=== PATIENT | male | born 1950 | race Caucasian/White ===

== ENCOUNTER 2019-08-23 14:15 | Outpatient (CLI) | payer MEDICARE, SELFPAY ==
[2019-08-23 14:35] LABS: Hematocrit 37.8 % (42.0-52.0); Hemoglobin 12.6 g/dL (14.0-18.0); Mean Corpuscular HGB Conc 33.3 g/dl (32-36); Mean Corpuscular Hemoglobin 32.1 pg (26-34); Mean Corpuscular Volume 96.2 fl (80-100); Mean Platelet Volume 10.2 fl (7.4-10.4); Platelet Count Result 232 k/mm3 (150-375); Red Blood Count 3.93 M/mm3 (4.6-6.20); Red Cell Distribution Width 13.1 % (11.5-14.5); White Blood Count 5.6 K/mm3 (4.5-10.0)
[2019-08-23 14:51] LABS: Alanine Aminotransferase 44 U/L (4-50); Alkaline Phosphatase 70 U/L (38-126); Aspartate Amino Transferase 70 U/L (17-59); Bilirubin,Total 0.5 mg/dL (0.2-1.3); Blood Urea Nitrogen 13 mg/dL (9-20); Calcium 9.6 mg/dL (8.4-10.2); Carbon Dioxide 28 mmol/L (22-30); Chloride 95 mmol/L (98-107); Cholesterol 226 mg/dL (0-200); Estimated Glomerular Filt Rate > 60; Glucose 93 mg/dL (75-110); HDL Direct 77 mg/dL; Potassium 4.7 mmol/L (3.4-5.0); Sodium 133 mmol/L (137-145); Triglycerides 87 mg/dL (<150)
[2019-08-23 15:02] LABS: LDL Cholesterol Direct 128 mg/dL
[2019-08-28 23:57] LABS: Vitamin D 1,25 (OH)2 Total 44 pg/mL (18-72); Vitamin D2 1,25 (OH)2 <8 pg/mL; Vitamin D3 1,25 (OH)2 44 pg/mL
== END 2019-08-23 14:16 | disposition home or self-care (01) ==
LOC: ANHLAB 14:21
PROVIDERS: PCP Family Medicine; Visit Provider Nurse Practitioner Family
DX: I10 Essential (primary) hypertension (principal)
CPT/HCPCS: 36415; 80053; 80061; 82652; 85027

== ENCOUNTER 2019-09-06 11:34 | Outpatient (CLI) | payer MEDICARE, SELFPAY | END 2019-09-06 11:35 | disposition home or self-care (01) | PROVIDERS: PCP Family Medicine; Visit Provider Nurse Practitioner Family | DX: E03.9 Hypothyroidism, unspecified (principal) | CPT/HCPCS: 36415; 84443 ==

== ENCOUNTER 2019-11-26 00:19 | Outpatient (CLI) | payer MEDICARE, SELFPAY ==
[2019-11-26 17:01] LABS: SARS-CoV-2 RNA PCR Negative
== END 2019-11-26 00:20 | disposition home or self-care (01) ==
LOC: ANHCOVIDDT 00:20
PROVIDERS: PCP Family Medicine; Visit Provider Internal Medicine Gastroenterology
DX: Z01.818 Encounter for other preprocedural examination (principal); Z11.59 Encounter for screening for other viral diseases
CPT/HCPCS: 87635; C9803; U0003

== ENCOUNTER 2019-11-28 00:25 | Day surgery (SDC) | payer MEDICARE, SELFPAY ==
[2019-11-22 13:25] VITALS: BMI 25.6
[2019-11-28 06:37] VITALS: BP 172/76; PULSE 70; RESP 18; TEMP 36.7; O2SAT 100; BMI 25.8
[2019-11-28] MEDS: LACTATED RINGERS 1,000 ML 150 ML IV CONT (06:54)
--- NOTE | 2019-11-28 07:04 | WPDANESEPPF ---
Anes - Initial Pre Proc Eval Procedure: Operation Date: 11/28/19 07:30 Proposed Procedures p Screening Colonoscopy - Phil Eugene MD Date/Time: 11/28/19 07:04 Surgeon: Phil Eugene MD Pre Op Diagnosis: Hx Colon Polyps Patient Data Age: 69 Gender: M Height: 5 ft 10 in Weight: 81.6 kg Last Vital Signs Temp 36.7 C 11/28/19 06:37 Pulse 70 11/28/19 06:37 Resp 18 11/28/19 06:37 BP 172/76 H 11/28/19 06:37 Pulse Ox 100 11/28/19 06:37 Allergies Allergy/AdvReac Type Severity Reaction Status Date / Time No Known Allergies Allergy Unverified 11/28/19 06:34 Home Medications Medication Instructions Recorded Confirmed Type ascorbate calcium (vitamin C) 500 500 mg PO DAILY #90 tablet 08/23/19 11/28/19 Rx mg tablet cholecalciferol (vitamin D3) 50 4,000 unit PO DAILY tablet 08/23/19 11/28/19 History mcg (2,000 unit) chewable tablet cyanocobalamin (vitamin B-12) 1,000 mcg PO DAILY #90 tablet 08/23/19 11/28/19 Rx 1,000 mcg tablet multivitamin 1 cap PO DAILY #90 cap 08/23/19 11/28/19 Rx sildenafil 100 mg tablet See Rx Instructions PO .COMPLEX 08/23/19 11/28/19 Rx PRN #30 tablet methylprednisolone 4 mg tablets in See Rx Instructions PO PER PKG DIR 10/08/19 11/28/19 Rx a dose pack #21 each amlodipine 5 mg tablet 5 mg PO DAILY #90 tablet 11/07/19 11/28/19 Rx levothyroxine 25 mcg tablet 25 mcg PO DAILY #90 tablet 11/07/19 11/28/19 Rx lisinopril 20 mg tablet 20 mg PO DAILY #90 tablet 11/07/19 11/28/19 Rx Patient hx anesthesia problems: none Family hx anesthesia problems: none PMFSH Past Medical History Medical History Abnormal colonoscopy (~08/2012) polyp - Dr Eugene Erectile dysfunction Essential (primary) hypertension Vitamin D deficiency Surgical History Surgical History History of arthroscopy of knee History of cataract extraction (~11/2016) History of hip replacement History of lumbar surgery (~2016) Family History Family History Father Acute myocardial infarction Social History Social History Smoking status: Never smoker Alcohol intake: current Anes - Eval Final PreProcedure Day of Procedure 11/28/19 07:04 Patient weight: normal Heart: regular rate and rhythm Lungs: clear to auscultation Airway: Mallampati scale class II Neurological: alert and oriented Last oral intake: >/= 8 hours ASA classification: II Emergent: no Anesthetic plan: proceed Anesthesia type and monitoring: general GIVS and standard monitoring Informed Consent: The patient's anesthetic plan and its attendant risks and benefits were discussed with the patient/family/POA. Questions were solicited and answers provided to the satisfaction of the patient/family/POA.
--- NOTE | 2019-11-28 07:48 | P.CONGI_ITS ---
Assessment and Plan Assessment and plan (1) History of colon polyps: Code(s): Z86.010 - Personal history of colonic polyps Status: Acute Assessment and Plan: Patient has a distant history of colon polyps. Patient presents today for follow-up colonoscopy. Plan is to continue fiber in his diet. Further recommendations will be given after endoscopy. GI Consult Note Consult date/time: 11/28/19 07:48 HPI: Richie Jimenez is a 69 year old male seen in evaluation at the request of DR Jessi Davis.Patient presents for surveillance colonoscopy. Patient has a history of colon polyps identified by endoscopy 7 years ago. Patient's current weight appetite bowel movements are normal. He denies abdominal pain. He denies any blood in his stools. His bowel habits are regular. Family history is noncontributory. Review of Systems Review of Systems: All systems reviewed & are unremarkable except as noted in HPI and below PMFSH Past Medical History Medical History Abnormal colonoscopy (~08/2012) polyp - Dr Eugene Erectile dysfunction Essential (primary) hypertension Vitamin D deficiency Surgical History Surgical History History of arthroscopy of knee History of cataract extraction (~11/2016) History of hip replacement History of lumbar surgery (~2016) Family History Family History Father Acute myocardial infarction Social History Social History Smoking status: Never smoker Alcohol intake: current Meds Home Medications and Allergies Home Medications Medication Instructions Recorded Confirmed Type ascorbate calcium (vitamin C) 500 500 mg PO DAILY #90 tablet 08/23/19 11/28/19 Rx mg tablet cholecalciferol (vitamin D3) 50 4,000 unit PO DAILY tablet 08/23/19 11/28/19 History mcg (2,000 unit) chewable tablet cyanocobalamin (vitamin B-12) 1,000 mcg PO DAILY #90 tablet 08/23/19 11/28/19 Rx 1,000 mcg tablet multivitamin 1 cap PO DAILY #90 cap 08/23/19 11/28/19 Rx sildenafil 100 mg tablet See Rx Instructions PO .COMPLEX 08/23/19 11/28/19 Rx PRN #30 tablet methylprednisolone 4 mg tablets in See Rx Instructions PO PER PKG DIR 10/08/19 11/28/19 Rx a dose pack #21 each amlodipine 5 mg tablet 5 mg PO DAILY #90 tablet 11/07/19 11/28/19 Rx levothyroxine 25 mcg tablet 25 mcg PO DAILY #90 tablet 11/07/19 11/28/19 Rx lisinopril 20 mg tablet 20 mg PO DAILY #90 tablet 11/07/19 11/28/19 Rx Allergies Allergy/AdvReac Type Severity Reaction Status Date / Time No Known Allergies Allergy Unverified 11/28/19 06:34 Vital Signs Vital Signs - 24 hr 11/28/19 06:37 Temperature 36.7 C Pulse Rate 70 Respiratory Rate 18 Blood Pressure 172/76 H Pulse Oximetry 100 Exam Narrative: Exam Narrative: Physical exam reveals patient to be alert. Vital signs stable. HEENT exam unremarkable. Lungs are clear to auscultation and percussion. Heart is without murmur or extra sounds. Abdominal exam bowel sounds are present soft nontender with no organomegaly. 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
[2019-11-28 08:15] VITALS: BP 141/86; PULSE 65; RESP 17; O2SAT 100
[2019-11-28 08:25] VITALS: BP 140/83; PULSE 69; RESP 17; O2SAT 100
[2019-11-28 08:35] VITALS: BP 146/88; PULSE 68; RESP 17; O2SAT 100
== END 2019-11-28 08:50 | disposition home or self-care (01) ==
PROVIDERS: PCP Family Medicine; Visit Provider Internal Medicine Gastroenterology
PROC: 0DJD8ZZ Inspection of Lower Intestinal Tract, Via Natural or Artificial Opening Endoscopic (ICD-10-PCS; CPT 45378; principal; 2019-11-28 07:30)
DX: Z12.11 Encounter for screening for malignant neoplasm of colon (principal); D12.2 Benign neoplasm of ascending colon; D12.5 Benign neoplasm of sigmoid colon; K64.8 Other hemorrhoids; I10 Essential (primary) hypertension; E55.9 Vitamin D deficiency, unspecified; N52.9 Male erectile dysfunction, unspecified
CPT/HCPCS: 45385; 87635; 88305; C9803; J2704; J7120; U0003

== ENCOUNTER 2020-06-18 09:38 | Outpatient (CLI) | payer MEDICARE, SELFPAY ==
--- NOTE | 2020-06-18 12:00 | NEURO_ITS ---
IMPRESSION: # Complains of pain and numbness of hands, more so at night. # Severe Carpal Tunnel Syndrome, right more than left. # Mild ulnar neuropathy across the elbow, left more than right. # Abnormal needle/EMG exa. # Clinical correlation recommended. Nerve Conduction Studies Anti Sensory Summary Table Stim Site NR Peak (ms) P-T Amp (?V) Site1 Site2 Delta-P (ms) Dist (cm) Donovan (m/s) Left Median Anti Sensory (2-3nd Digit) Wrist 4.0 25.5 Wrist 2-3nd Digit 4.0 14.0 35 Wrist 4.4 26.9 Wrist 2-3nd Digit 4.0 14.0 35 Right Median Anti Sensory (2-3nd Digit) NO RESPONSE Wrist NR Wrist 2-3nd Digit 14.0 Wrist NR Wrist 2-3nd Digit 14.0 Left Radial Anti Sensory (Base 1st Digit) Wrist 3.1 4.5 Wrist Base 1st Digit 3.1 0.0 Right Radial Anti Sensory (Base 1st Digit) Wrist 3.0 5.4 Wrist Base 1st Digit 3.0 0.0 Left Ulnar Anti Sensory (5th Digit) Wrist 3.0 9.6 Wrist 5th Digit 3.0 14.0 47 Right Ulnar Anti Sensory (5th Digit) Wrist 3.1 39.8 Wrist 5th Digit 3.1 14.0 45 Motor Summary Table Stim Site NR Onset (ms) O-P Amp (mV) Site1 Site2 Delta-0 (ms) Dist (cm) Donovan (m/s) Left Median Motor (Abd Poll Brev) Wrist 5.3 0.2 Elbow Wrist 5.8 30.0 52 Elbow 11.1 0.9 Right Median Motor (Abd Poll Brev) Wrist 5.5 1.1 Elbow Wrist 5.8 29.0 50 Elbow 11.3 2.0 Left Ulnar Motor (Abd Dig Minimi) Wrist 3.1 6.3 A Elbow Wrist 6.7 31.0 46 A Elbow 9.8 5.2 B Elbow Wrist 4.4 22.0 50 B Elbow 7.5 5.4 Right Ulnar Motor (Abd Dig Minimi) Wrist 3.2 6.6 A Elbow Wrist 5.9 29.0 49 A Elbow 9.1 5.4 B Elbow Wrist 4.7 22.0 47 B Elbow 7.9 5.0 F Wave Studies NR F-Lat (ms) L-R F-Lat (ms) Left Median (Mrkrs) (Abd Poll Brev) 30.05 0.94 Right Median (Mrkrs) (Abd Poll Brev) 30.99 0.94 Left Ulnar (Mrkrs) (Abd Dig Min) 30.54 1.09 Right Ulnar (Mrkrs) (Abd Dig Min) 29.46 1.09 EMG Side Muscle Nerve Root Ins Act Fibs Amp Dur Recrt Comment Right 1stDorInt Ulnar C8-T1 Nml Nml Nml Nml Reduced Right Ext Indicis Radial (Post Int) C7-8 Nml Nml Nml Nml Nml Right Ext Digitorum Radial (Post Int) C7-8 Nml Nml Nml Nml Nml Right BrachioRad Radial C5-6 Nml Nml Nml Nml Nml Right PronatorTeres Median C6-7 Nml Nml Nml Nml Nml Right Abd Poll Brev Median C8-T1 Nml Nml Nml Nml Reduced Left 1stDorInt Ulnar C8-T1 Nml Nml Nml Nml Reduced Left Ext Indicis Radial (Post Int) C7-8 Nml Nml Nml Nml Nml Left Ext Digitorum Radial (Post Int) C7-8 Nml Nml Nml Nml Nml Left BrachioRad Radial C5-6 Nml Nml Nml Nml Nml Left PronatorTeres Median C6-7 Nml Nml Nml Nml Nml Left Abd Poll Brev Median C8-T1 Nml Nml Decr >12ms Reduced Right ABD Dig Min Ulnar C8-T1 Nml Nml Nml Nml Reduced Left ABD Dig Min Ulnar C8-T1 Nml Nml Nml Nml Reduced MTDD
== END 2020-06-18 09:39 | disposition home or self-care (01) ==
LOC: ANHNEURO 09:39
PROVIDERS: PCP Family Medicine; Visit Provider Nurse Practitioner Family
DX: R20.2 Paresthesia of skin (principal); G56.03 Carpal tunnel syndrome, bilateral upper limbs; G56.23 Lesion of ulnar nerve, bilateral upper limbs
CPT/HCPCS: 95886; 95911

== ENCOUNTER 2020-08-15 12:58 | Outpatient (CLI) | payer MEDICARE, SELFPAY | END 2020-08-15 12:59 | disposition home or self-care (01) | LOC: ANHCOVIDVC 12:58 | PROVIDERS: PCP Family Medicine | DX: Z23 Encounter for immunization (principal) | CPT/HCPCS: 0001A; 91300 ==

== ENCOUNTER 2020-09-05 13:01 | Outpatient (CLI) | payer MEDICARE, SELFPAY | END 2020-09-05 13:02 | disposition home or self-care (01) | LOC: ANHCOVIDVC 13:02 | PROVIDERS: PCP Family Medicine | DX: Z23 Encounter for immunization (principal) | CPT/HCPCS: 0002A; 91300 ==

== ENCOUNTER 2021-10-22 09:31 | Outpatient (CLI) | payer MEDICARE, SELFPAY ==
--- NOTE | 2021-10-22 09:58 | ECHO_ITS ---
Patient Info Name: Rcihie Jimenez Age: 71 years : 1950 Gender: Male Ht: 70 in Wt: 180 lbs BSA: 2.02 m2 HR: 67 bpm BP: 159 / 89 mmHg Technical Quality: Good Exam Date: 10/22/2021 10:15 AM Exam Location: [facility] Patient Status: Outpatient Admit Date: 10/22/2021 Staff Ordering Physician: oJhanna Ewing NP Rn Orthopaedic: Deacon Bridges RDCS, RT Attending Provider: Johanna Ewing NP Referring Physician: Gildardo GO; Exam Type: CA echo doppler color flow Study Info Indications R01.1 - Cardiac murmur, unspecified Complete two-dimensional, color flow and Doppler transthoracic echocardiogram is performed. Strain analysis performed. Summary 1. Complete two-dimensional, color flow and Doppler transthoracic echocardiogram is performed. 2. Left ventricular chamber dimension is normal. 3. Left ventricular systolic function is normal, estimated at 60-65%. 4. There is mildly increased left ventricular wall thickness. 5. The left ventricular diastolic function is grade II diastolic dysfunction. 6. E/e' 8 is minimally elevated. 7. Global longitudinal strain is normal at -18.7%. 8. Left atrial chamber dimension is mildly enlarged. 9. There is moderate aortic valve sclerosis. 10. There is mild aortic valve stenosis with a peak velocity of 242 cm/s, mean gradient of 12 mmHg, and aortic valve area of 1.7 cm2. 11. The mitral valve has mildly calcified annulus. 12. There is mild mitral valve regurgitation. 13. There is mild tricuspid valve regurgitation. 14. Mild pulmonary hypertension, estimated pulmonary arterial systolic pressure is 40 mmHg. 15. Dilated inferior vena cava with >50% collapse upon inspiration consistent with elevated right atrial pressure, 10 mmHg. Left Ventricle E/e' 8 is minimally elevated. Global longitudinal strain is normal at -18.7%. Left ventricular chamber dimension is normal. Left ventricular systolic function is normal, estimated at 60-65%. There is mildly increased left ventricular wall thickness. The left ventricular diastolic function is grade II diastolic dysfunction. Right Ventricle Right ventricular chamber dimension is normal. Right ventricular systolic function is normal. Left Atria Left atrial chamber dimension is mildly enlarged. Right Atria Right atrial chamber dimension is normal. Aortic Valve The aortic valve is trileaflet. There is moderate aortic valve sclerosis. There is mild aortic valve stenosis with a peak velocity of 242 cm/s, mean gradient of 12 mmHg, and aortic valve area of 1.7 cm2. There is no aortic valve regurgitation. Pulmonic Valve There is no pulmonic regurgitation. Mitral Valve The mitral valve has mildly calcified annulus. There is no mitral valve stenosis. There is mild mitral valve regurgitation. Tricuspid Valve There is mild tricuspid valve regurgitation. Mild pulmonary hypertension, estimated pulmonary arterial systolic pressure is 40 mmHg. Pericardium/Pleural There is no pericardial effusion. Inferior Vena Cava Dilated inferior vena cava with >50% collapse upon inspiration consistent with elevated right atrial pressure, 10 mmHg. Aorta The aortic root size at the sinus of Valsalva is normal. Left Ventricular Outflow Tract Name Value Normal LVOT 2D
== END 2021-10-22 09:32 | disposition home or self-care (01) ==
PROVIDERS: PCP Family Medicine; Visit Provider Nurse Practitioner Family
DX: R01.1 Cardiac murmur, unspecified (principal); I08.3 Combined rheumatic disorders of mitral, aortic and tricuspid valves
CPT/HCPCS: 93306

== ENCOUNTER 2023-01-05 14:52 | Inpatient (IN) | payer MEDICARE, SELFPAY ==
[2023-01-05] VITALS (30 sets, daily range): BP systolic 115–179; BP diastolic 70–102; PULSE 16–83; RESP 15–18; TEMP 36.4–36.7; O2SAT 97–100
--- NOTE | ~2023-01-05 | MR_ITS ---
MRI of the lumbar spine Clinical History: Cauda equina syndrome Technique: Axial T2-weighted and gradient images, and sagittal T1-weighted, T2-weighted, and STIR jocelyn ges were acquired. Following intravenous administration of 17 cc MultiHance gadolinium, T1-weighted f at-sat imaging was performed in the axial and sagittal planes. COMPARISON: 12/31/2016 Findings: No acute fracture seen. 6 mm anterolisthesis of L3 over L4 present. No suspicious bone lary ow signal abnormality seen. At L1-L2, there is minimal disc bulge with moderate to severe facet arthropathy. No central canal meredith nosis. There is mild bilateral neural foraminal narrowing. At L2-L3, there is moderate degenerative disc narrowing. There is diffuse disc bulge and severe facet arthropathy, which contribute to severe spinal canal stenosis/thecal sac compression. There is sever e bilateral neural foraminal narrowing. At L3-L4, there is advanced degenerative disc narrowing. Disc bulge and severe facet arthropathy resu lt in severe spinal canal stenosis/thecal sac compression. There is severe bilateral neural foraminal narrowing. At L4-L5, there is moderate to severe degenerative disc narrowing. There is diffuse disc bulge, worst in the right paracentral region, with severe facet arthropathy. There is right lateral recess stenos is and mild to moderate central canal stenosis/thecal sac compression. There is severe right neural f oraminal narrowing. There is moderate to severe left neural foraminal narrowing. At L5-S1, there is severe facet arthropathy with minimal disc bulge. No central canal stenosis. There is mild to moderate right neural foraminal narrowing. Left neural foramen preserved. Paravertebral soft tissues are unremarkable. No abnormal postcontrast enhancement identified. Impression: Severe multilevel degenerative spondylosis in the lumbar spine, as detailed above. 6 mm anterolisthesis of L3 over L4. Reviewed, dictated and finalized at location . Impression: Severe multilevel degenerative spondylosis in the lumbar spine, as detailed abo ve. 6 mm anterolisthesis of L3 over L4.
--- NOTE | ~2023-01-05 | XR_ITS ---
XR pelvis 1-2V 01/05/2023 18:58 Indication: Right hip pain Procedure: AP pelvis Comparison: 01/01/2014 Findings: Pelvic rings are intact. There is a left total hip arthroplasty. There is moderate osteoart hritis of the right hip. Pelvic rings are intact. Sacral foramen are symmetric. No acute fracture or traumatic malalignment. Impression: 1: No acute fracture. Reviewed, dictated and finalized at location A. Impression: 1: No acute fracture.
--- NOTE | ~2023-01-05 | CT_ITS ---
EXAMINATION: CT thoracic lumbar wo con DATE: 01/05/2023 18:53 INDICATION: Right leg weakness TECHNIQUE: Computed tomography (CT) of the thoracic and lumbar spine was performed without intravenou s contrast. The dose-length product was 1286.10 mGy-cm. Automated exposure control and iterative dong nstruction technique were employed. COMPARISON: MRI dated 12/31/2016 FINDINGS: Mild wedge compression deformities of T6-T12 which appear chronic. There is degenerative di sc disease at these levels. There are prominent ventral osteophytes at these levels. No acute fractur e or traumatic malalignment. Visualized lung parenchyma is unremarkable. No significant paraspinal so ft tissue abnormality. There is grade 1 spondylolisthesis at L3-4 secondary to facet hypertrophy with severe central canal s tenosis. There is facet hypertrophy at L2-3 through L5-S1. No acute fracture or traumatic malalignmen t. There is mild dextrocurvature of the lumbar spine. There are prominent marginal osteophytes. No si gnificant paraspinal soft tissue abnormality. IMPRESSION: 1. No acute abnormality of the thoracic or lumbar spine. 2: Grade 1 degenerative spondylolisthesis at L3-4 secondary to facet hypertrophy with severe central canal stenosis. 3: Moderate-severe lower thoracic and lumbar spondylosis. Reviewed, dictated and finalized at location A. IMPRESSION: 1. No acute abnormality of the thoracic or lumbar spine. 2: Grade 1 degenerative spondylolisthesis at L3-4 secondary to facet hypertroph y with severe central canal stenosis. 3: Moderate-severe lower thoracic and lumbar spondylosis.
--- NOTE | ~2023-01-05 | XR_ITS ---
EXAMINATION: XR fluoroscopy no charge DATE: 01/06/2023 16:19 INDICATION: Laminectomy TECHNIQUE: Single lateral fluoroscopic image of the lumbar spine were obtained during procedure perfo rmed by Dr. Palomares. Radiologist was not present for the imaging or procedure. The amount of fluorosc opy time used during this procedure was 0.1 minutes. COMPARISON: Lumbar spine MR dated 01/06/2023 FINDINGS: Again seen is moderate lumbar spondylosis including grade 1 anterolisthesis of L3 on L4. Soft tissue retractors and a metallic probe projects over the region of the spinous process of L3 which is not cl early visualized which could be due to either resection or overpenetration resulting from lucent gas at the operative bed. IMPRESSION: 1. Fluoroscopy utilized during reported lumbar laminectomy. See procedure note for further detail. Reviewed, dictated and finalized at location A.
--- NOTE | 2023-01-05 18:25 | PC.NURSE ---
Spoke with Dr. Mccormick regarding pts bladder scan and muskuloskeletal issues and MD going to speak with pt before straight cath or gonzalez placement. Will await orders.
--- NOTE | 2023-01-05 19:12 | ED.LOWEXIN ---
HPI - Extremity Injury (Lower) General Chief Complaint: Urogenital-Male Stated Complaint: difficulty urinating/hip pain Time Seen by Provider: 01/05/23 17:59 History of Present Illness HPI Narrative: This is a 72-year-old male with past history of hyperlipidemia, heart murmur, who presents the emergency department complaining of right hip pain, right lower extremity weakness and difficulty urinating. The patient states 2 days ago, he started developing intermittent sharp and dull right hip pain. At baseline, his pain is rated 2/10, but with intermittent movements, it increases to 9/10. He also notes during this time difficulty urinating. Today, he noticed right leg weakness. He denies fevers, chills, trauma, falls or other recent change in his health or medications Related Data Home Medications Medication Instructions Recorded Confirmed cholecalciferol (vitamin D3) 50 4,000 unit PO DAILY 08/23/19 01/05/23 mcg (2,000 unit) chewable tablet ascorbate calcium (vitamin C) 500 500 mg PO EVERY OTHER DAY 01/05/23 01/05/23 mg tablet lisinopril 40 mg tablet 40 mg PO DAILY 01/05/23 01/05/23 [id number]-ssi-dwtxdeko acid 1,000 1 ea PO EVERY OTHER DAY 01/05/23 01/05/23 mg-herbal 350 mg oral efferves powder pack (Airborne (ascorbic acid)) Allergies Allergy/AdvReac Type Severity Reaction Status Date / Time No Known Allergies Allergy Verified 09/25/21 10:03 Review of Systems Review of Systems: CONSTITUTIONAL: Denies fever, chills, or sweats. CARDIOVASCULAR: Denies chest pain, palpitations, or edema. RESPIRATORY: Denies cough or dyspnea. GASTROINTESTINAL: Denies abdominal pain, nausea, vomiting, or diarrhea. GENITOURINARY: Denies dysuria or hematuria. SKIN: Denies rash or itching. MUSCULOSKELETAL: Right hip pain denies back pain, joint pain, or myalgia. NEUROLOGIC: Denies headache, numbness, dizziness, or weakness. PSYCHIATRIC: Denies anxiety or depression. [facility] Past Medical History Medical History Abnormal colonoscopy (~08/2012) polyp - Dr Eugene Aortic valve stenosis, moderate Cardiac murmur Carpal tunnel syndrome Chronic anemia Dyslipidemia Erectile dysfunction Essential (primary) hypertension Hypothyroid Vitamin D deficiency Surgical History Surgical History H/O elbow surgery History of arthroscopy of knee History of carpal tunnel surgery of left wrist History of cataract extraction (~11/2016) History of hip replacement History of lumbar surgery (~2016) Family History Family History (Updated 01/05/23 @ 23:27 by Ashely Fernandez RN) Father Acute myocardial infarction Mother Rheumatoid arteritis Pneumonia Social History Social History Social History: . Retired Smoking status: Never smoker Alcohol intake: current Drinks per week: 28 Substance use: never Substance use type: does not use Lack of Transportation: No Lack of Food: Never True Current Housing: I Have Housing Concerned About Future Housing: No Difficulty Paying Gas/Electric Bills: No Difficulty Paying for Meds: No Currently Unemployed: No Education: Associate Degree Difficulty w/ Childcare or Family Care: No Living arrangements: with family Occupation/Education: retired Gender identity (if verbalized by the patient): Male Sexual Orientation (if Verbalized by the Patient): Straight or Heterosexual Spiritual care concerns: No Agree to blood products: Yes Exam Narrative: GENERAL: Well-developed, well-nourished, and in no acute distress. HEAD: Normocephalic, atraumatic. EYES: PERRLA and EOMI. NECK: Supple. No midline spine tenderness to palpation, no step-off or crepitus CHEST: Clear to auscultation. No respiratory distress. No wheezes rales or rhonchi HEART: Regular rate and rhythm. No murmur heard. Normal p
[2023-01-05] MEDS: oxyCODONE/ACETAMINOPHEN (*CRX) 5-325 MG TABLET 1 TABLET PO (19:40)
--- NOTE | 2023-01-05 21:08 | PM.IMHP ---
H&P: HPI History of Present Illness Date/Time: 01/05/23 21:08 Chief Complaint: Gait disturbance Narrative: This is a 72-year-old male with past medical history significant for hypertension, hypothyroidism, carpal tunnel syndrome, patient presents to the emergency room due to lower back pain right hip pain unable to bear weight on right leg, unable to do hip flexion of the right leg however denies numbness tingling prickling sensation denies saddle anaesthesia however has had urinary retention. Preliminary workup in the emergency room was significant for CT of lumbar spine with severe spinal canal stenosis. Patient has been admitted for further evaluation management and treatment. EXAMINATION: CT thoracic lumbar wo con DATE: 01/05/2023 18:53 INDICATION: Right leg weakness TECHNIQUE: Computed tomography (CT) of the thoracic and lumbar spine was performed without intravenous contrast. The dose-length product was 1286.10 mGy-cm. Automated exposure control and iterative reconstruction technique were employed. COMPARISON: MRI dated 12/31/2016 FINDINGS: Mild wedge compression deformities of T6-T12 which appear chronic. There is degenerative disc disease at these levels. There are prominent ventral osteophytes at these levels. No acute fracture or traumatic malalignment. Visualized lung parenchyma is unremarkable. No significant paraspinal soft tissue abnormality. There is grade 1 spondylolisthesis at L3-4 secondary to facet hypertrophy with severe central canal stenosis. There is facet hypertrophy at L2-3 through L5-S1. No acute fracture or traumatic malalignment. There is mild dextrocurvature of the lumbar spine. There are prominent marginal osteophytes. No significant paraspinal soft tissue abnormality. IMPRESSION: 1. No acute abnormality of the thoracic or lumbar spine. 2: Grade 1 degenerative spondylolisthesis at L3-4 secondary to facet hypertrophy with severe central canal stenosis. 3:? Moderate-severe lower thoracic and lumbar spondylosis. Review of Systems Review of Systems: Lower back pain, right hip pain, right lower extremity weakness Constitutional: Constitutional: Denies fatigue, Denies fever(s), Denies frequent falls, Denies night sweats, Denies poor appetite and Denies weakness Eyes: Eyes: Denies change in vision ENT: Denies dysphagia and Denies dizziness Cardiovascular: Cardiovascular: Denies chest pain at rest, Denies leg edema, Denies radiating jaw, neck or arm pain and Denies palpitations Respiratory: Respiratory: Denies chest congestion, Denies cough and Denies excessive phlegm production Gastrointestinal: Gastrointestinal: Denies abdominal pain, Denies dyspepsia, Denies heartburn, Denies fecal incontinence, Denies diarrhea, Denies nausea and Denies vomiting Genitourinary: Genitourinary: Reports nocturia and Reports urinary hesitancy Comments: Urinary retention Musculoskeletal: Musculoskeletal: Reports back pain, Reports arthralgias (R hip), Denies muscle cramps, Reports muscle weakness, Denies numbness, Reports radiating pain into limb, Denies stiffness and Denies tingling Integumentary/Breasts: Skin/Breast: Denies rash Neurologic: Denies frequent falls, Denies focal weakness, Denies numbness, Denies seizure-like activity, Denies Sensory deficit (Neuro), Denies tingling, Denies paresthesias and Denies weakness Psychiatric: Psychiatric: Reports no additional psychiatric complaints and Reports as per HPI Endocrine: Endocrine: Denies cold intolerance, Denies fatigue, Denies flushing, Denies heat intolerance, Denies polyphagia, Denies polydipsia, Denies polyuria and Denies palpitations Hematologic/Lymphatic: Hematologic/Lymphatic: Reports no additional hematologic/lymphatic complaints and Reports as per HPI Allergic/Immunologic: Allergic/Immunologic: Reports no additional allergic/immunologic complaints and Reports as per HPI PMFSH Past Medical History Medical History (Reviewed 01/05/23 @ 19:12 by
[2023-01-05 21:28] LABS: Basophils Absolute Auto 0.1 K/mm3 (0.0-0.1); Basophils Percent Auto 1.6 % (0.2-1.2); Eosinophils Absolute Auto 0.3 K/mm3 (0-0.3); Eosinophils Percent Auto 3.9 % (0-4.4); Hematocrit 35.6 % (42.0-52.0); Hemoglobin 12.3 g/dL (14.0-18.0); Immature Granulocyte Absolute 0.01 K/mm3 (0.00-0.031); Immature Granulocyte Percent A 0.1 % (0-0.5); Lymphocytes Absolute Auto 1.94 K/mm3 (0.9-3.2); Mean Corpuscular HGB Conc 34.6 g/dl (32-36); Mean Corpuscular Hemoglobin 32.3 pg (26-34); Mean Corpuscular Volume 93.4 fl (80-100); Mean Platelet Volume 9.4 fl (7.4-10.4); Monocytes Absolute Auto 0.9 K/mm3 (0.1-0.6); Monocytes Percent Auto 12.3 % (2.6-8.5); Neutrophils Absolute Auto 4.2 K/mm3 (1.3-6.7); Neutrophils Percent Auto 56.1 % (45.5-73.1); Platelet Count Result 293 k/mm3 (150-375); Red Blood Count 3.81 M/mm3 (4.6-6.20); White Blood Count 7.5 K/mm3 (4.5-10.0)
[2023-01-05 21:39] LABS: INR 1.1; Prothrombin Time 14.3 Seconds (11.1-14.7)
[2023-01-05 21:40] LABS: Alanine Aminotransferase 17 U/L (6-50); Albumin Level 4.9 g/dL (3.5-5.1); Alkaline Phosphatase 64 U/L (38-126); Anion Gap 10 mmol/L (8-16); Aspartate Amino Transferase 31 U/L (17-59); Bilirubin,Total 0.5 mg/dL (0.2-1.3); Blood Urea Nitrogen 23 mg/dL (9-20); Calcium 9.3 mg/dL (8.4-10.2); Carbon Dioxide 26 mmol/L (22-30); Chloride 93 mmol/L (98-107); Estimated CRCL calculation 56 ml/min; Estimated Glomerular Filt Rate > 60; Glucose 97 mg/dL (65-110); Partial Thromboplastin Time 36.3 SECONDS (22.3-36.8); Potassium 4.2 mmol/L (3.4-5.0); Sodium 129 mmol/L (137-145)
--- NOTE | 2023-01-05 23:24 | ADMGEN ---
This patient, Richie Jimenez, was admitted to Medical Room 259-01. Patient/family oriented to hospital policies and general routines including ID bracelet, bed and alarms, visiting hours, pain management, procedures, bathroom and other care routines, personal items, smoking policy, room service/diet, and visiting hours. Information on how to activate the Rapid Response Team has been discussed. Patient/Family are encouraged to report perceived risks to care and to ask questions if they do not understand what they are told or what they should do.
[2023-01-06] VITALS (13 sets, daily range): BP systolic 125–146; BP diastolic 54–72; PULSE 72–91; RESP 16–20; TEMP 36.2–36.9; O2SAT 93–100; BMI 26.4
[2023-01-06 05:42] LABS: Basophils Absolute Auto 0.1 K/mm3 (0.0-0.1); Basophils Percent Auto 1.2 % (0.2-1.2); Eosinophils Absolute Auto 0.4 K/mm3 (0-0.3); Eosinophils Percent Auto 3.2 % (0-4.4); Hemoglobin 12.6 g/dL (14.0-18.0); Immature Granulocyte Absolute 0.03 K/mm3 (0.00-0.031); Immature Granulocyte Percent A 0.3 % (0-0.5); Lymphocytes Absolute Auto 1.47 K/mm3 (0.9-3.2); Lymphocytes Percent Auto 13.3 % (18.3-44.2); Mean Corpuscular HGB Conc 34.1 g/dl (32-36); Mean Corpuscular Hemoglobin 32.1 pg (26-34); Mean Corpuscular Volume 94.1 fl (80-100); Mean Platelet Volume 9.7 fl (7.4-10.4); Monocytes Absolute Auto 1.4 K/mm3 (0.1-0.6); Monocytes Percent Auto 12.3 % (2.6-8.5); Neutrophils Absolute Auto 7.7 K/mm3 (1.3-6.7); Neutrophils Percent Auto 69.7 % (45.5-73.1); Platelet Count Result 302 k/mm3 (150-375); Red Blood Count 3.93 M/mm3 (4.6-6.20); White Blood Count 11.1 K/mm3 (4.5-10.0)
[2023-01-06 06:00] LABS: Anion Gap 11 mmol/L (8-16); Blood Urea Nitrogen 28 mg/dL (9-20); Calcium 9.3 mg/dL (8.4-10.2); Carbon Dioxide 25 mmol/L (22-30); Chloride 96 mmol/L (98-107); Estimated CRCL calculation 61 ml/min; Estimated Glomerular Filt Rate > 60; Glucose 103 mg/dL (65-110); Potassium 4.3 mmol/L (3.4-5.0); Sodium 132 mmol/L (137-145)
[2023-01-06] MEDS: LEVOTHYROXINE SODIUM 50 MCG TABLET PO (06:06)
--- NOTE | 2023-01-06 08:43 | PCPTNOTE ---
Pt has bedrest orders active at this time and neurosurgery consult pending. Will follow
[2023-01-06] MEDS: amLODIPine BESYLATE 5 MG TABLET 10 MG PO (11:16)
[2023-01-06] MEDS: DOCUSATE SODIUM 100 MG CAPSULE PO ×2 (11:16→21:10)
[2023-01-06] MEDS: lisinopriL 20 MG TABLET 40 MG PO (11:17)
--- NOTE | 2023-01-06 13:15 | WPDNEUROSGCN ---
Assessment and Plan Assessment and plan (1) Cauda equina syndrome: Code(s): G83.4 - Cauda equina syndrome Status: Acute (2) Lumbar stenosis: Code(s): M48.061 - Spinal stenosis, lumbar region without neurogenic claudication Status: Acute (3) Spondylolisthesis, lumbar region: Code(s): M43.16 - Spondylolisthesis, lumbar region Status: Acute (4) History of lumbar discectomy: Code(s): Z98.890 - Other specified postprocedural states Status: Acute Plan Mr. Jimenez is a 72-year-old male with history of a previous left-sided L3-4 microdiskectomy who presents with 4 weeks of right hip and thigh pain, 1 week of urinary retention, and several days of right proximal leg weakness. he had a Gonzalez catheter placed in the ER last night with 1.6 L of urine out. On physical exam, he does have some proximal weakness on the right side but no evidence of saddle anesthesia. MRI lumbar spine shows severe central stenosis at L2-3 and moderate to severe stenosis at L3-4, particularly on the right side. I discussed the imaging with the patient and his at bedside. He does have the spondylolisthesis at L3-4, but this appears unchanged compared to his previous MRI in 2017. Additionally, he does not have any chronic issues with back pain, so I do not think this is symptomatic at this time. Given that his symptoms are concerning for cauda equina, I would recommend that we proceed with surgery in the form of L2-3 and L3-4 laminectomies. Fortunately, he has been NPO today and not take any blood thinners. He is going for surgery this afternoon. I discussed the surgery in detail with patient and his including risks, expected recovery, restrictions surgery. We discussed he has higher risk of spinal fluid leak given his previous surgery. He and his are in favor proceeding with surgery as described. Plan: -To OR today for L2-3, L3-4 laminectomies Consult date: 01/06/23 HPI: Richie Jimenez is a 72 year old male with history of cardiac murmur who presents to the hospital with four weeks of right hip and thigh pain, 1 week of urinary retention, and a few days of weakness in the right leg. The patient had a previous left-sided L3-4 microdiskectomy for back pain about 6 years ago but had otherwise been doing well without any back or leg pain until 4 weeks ago. He was doing some work in his yd after which she felt the pain come on. He has had pain in the right hip radiating into the right thigh since that time. He has had a previous left hip replacement and thought that his right is acting up, so he made an appointment with his orthopedic surgeon to have this evaluated. However, last week, he has had difficulty urinating and gets up every hour at night to try to void. Over the last couple days, he noticed difficulty lifting his right leg. Yesterday when he arrived in the ER, he had a gonzalez catheter placed with 1.6L urine out. He denies any symptoms in the left side and denies any saddle anesthesia. He normally has no issues with back pain. He is otherwise healthy and does not take any blood thinners. He is retired and a nonsmoker. Review of Systems Review of Systems: All systems reviewed & are unremarkable except as noted in HPI and below PMFSH Past Medical History Medical History Abnormal colonoscopy (~08/2012) polyp - Dr Eugene Aortic valve stenosis, moderate Cardiac murmur Carpal tunnel syndrome Chronic anemia Dyslipidemia Erectile dysfunction Essential (primary) hypertension Hypothyroid Vitamin D deficiency Surgical History Surgical History H/O elbow surgery History of arthroscopy of knee History of carpal tunnel surgery of left wrist History of cataract extraction (~11/2016) History of hip replacement History of lumbar surgery (~2016) Family History Family History (Updat
[2023-01-06] MEDS: LACTATED RINGERS 1,000 ML 30 ML IV CONT ×2 (13:35→16:18)
--- NOTE | 2023-01-06 13:39 | WPDHPUPDATE1 ---
History and Physical Update Update Date/Time: 01/06/23 13:39 History and Physical has been reviewed, including an updated exam of the patient. There are NO changes in the patient's condition. Risks, benefits, and alternatives have been discussed and questions answered. Patient agrees to proceed with procedure.
[2023-01-06] MEDS: ceFAZolin 2 GM/D5W 50 ML 2 GM/50 ML BAG IVPB ×2 (13:49→21:09)
--- NOTE | 2023-01-06 14:03 | PCOTNOTE ---
Pt. being taken for surgery this afternoon. Pt. can be seen for evaluation when medically appropriate and cleared for therapy s/p.
[2023-01-06] MEDS: BUPIVACAINE/EPINEPHRINE 0.25% 50 ML VIAL 30 ML INFILTRATE (16:05)
--- NOTE | 2023-01-06 16:13 | PM.OP ---
Procedure Note - Brief Procedure Note - Brief Date of procedure: 01/06/23 Cauda Equina syndrome Severe lumbar stenosis at L2-3, L3-4 Lumbar spondylolisthesis at L3-4 History of left L3-4 microdiskectomy Post-op diagnosis: Same Procedure performed: Laminectomy at L2-3 Revision laminectomy at L3-4 Surgeon: Sruthi Palomares MD Anesthesia: GETA Findings: Successful laminectomy at L2-3 and L3-4. Some motion noted at the L3-[address] Estimated blood loss (mL): 25 Urine output (mL): 1,100 Drains: Yes Packing: No Pathology: None sent Complications: No immediate complications Condition: Stable Disposition: PACU
--- NOTE | 2023-01-06 16:21 | W.PM.PROC2 ---
Procedure Note - Detailed Date of Procedure 01/06/23 Pre-op Diagnosis Cauda Equina syndrome Lumbar stenosis L2-3, L3-4 Lumbar spondylolisthesis at L3-4 History of previous left L3-4 hemilaminectomy, possible microdiskectomy Post-op Diagnosis Same Procedure Performed 1. Lumbar laminectomy at L2-3 2. Revision lumbar laminectomy at L3-4 3. Use of fluoroscopy for intra-operative localization Surgeon Sruthi Palomares MD [employer] Anesthesia General and Local Indications Mr. Jimenez is a 72-year-old male with history of previous left L3-4 hemilaminectomy, possible microdiskectomy who presented with 4 weeks of right-sided hip and thigh pain, 1 week of urinary retention, and several days of proximal right leg weakness. Imaging revealed severe lumbar stenosis at L2-3 and L3-4. He had evidence of a L3-4 spondylolisthesis which was present on previous imaging from 2017 and was unchanged. He was asymptomatic from this prior to the onset of his current symptoms 4 weeks ago, so this was not felt to be contributing to his symptoms in my opinion. Therefore, I recommend surgery in the form of L2-3 and L3-4 laminectomies. I discussed the surgery with the patient and his in detail including risks of bleeding, pain, infection, CSF leak, nerve damage, weakness, numbness, worsening of the spondylolisthesis. The patient provided informed consent to proceed. Description of Procedure The patient was brought to the operating room, and general anesthesia was induced. The patient was placed prone on the Anthony frame, and all pressure points were padded. Compression devices were placed on the patient's calves. The skin was cleaned with alcohol. The C-arm was brought onto the field to localize the appropriate disc space and assist with incisional planning. The previous incision was included into the new planned incision. The area was prepped and draped in usual sterile fashion. A time out was conducted, and pre-operative antibiotics were administered. Local anesthesia was injected into the planned incision. A midline skin incision was made with a 10-blade scalpel, and dissection was carried down with the monopolar cautery to open the fascia. Once the spinous processes were located, a subperiosteal dissection was performed to expose the laminae bilaterally. A self-retaining retractor was placed. The C-arm was brought in to confirm the correct level. A Leksell rongeur was used to remove the spinous processes of L2 and L3. The high-speed drill was used to thin the laminae at L2 and on the right at L3. A curved currette was used to ensure that the ligamentum and dura were free from the bone. Scar tissue at L3-4 was found, so extra care was taken to separate the scar tissue from the bone. The bone and ligamentum were removed at L2 and at L3 with the kerrison. The facet joints were undercut to widen the spinal canal. The Kerrison was then passed into the foraminae to ensure they were open. The dura appeared well decompressed. During surgery, there was some motion noted at the L3-4 facets bilaterally. Hemostasis was ensured, and the area was copiously irrigated. No evidence of CSF leak was noted. A hemovac drain was placed and tunneled inferiorly. The muscle was loosely approximated with 0-Vicryl. The fascia was closed with 0-Vicryl in an interrupted fashion. The soft tissue was again copiously irrigated. The dermis was closed with 2-0 and 3-0 interrupted Vicryl. The skin was closed with 4-0 subcuticular monocryl. The drain was secured with gauze and tape. Sterile dressings were applied. The patient was returned supine on the stretcher, extubated, and transferred to PACU without incident. Surgical codes: 45012, 38143 Implants None Estimated Blood Loss 25 Urine Output 1,100 Drains Yes Packing No Pathology None sent Complications None Condition Stable Disposition PACU [facility] Billing Surgery - Charge Forward: Surgery Billing
--- NOTE | 2023-01-06 16:23 | PM.IMPN ---
Progress Note: A&P Assessment and Plan (1) Acute urinary retention: Code(s): R33.8 - Other retention of urine Status: Acute Assessment and Plan: -gonzalez catheter placed with 1600 ml returned -given the fact that he has had impaired emptying for the last week with decreased sensation, will check a U/A to rule out any infection. very mild leukocytosis on admission labs. (2) Cauda equina syndrome: Code(s): G83.4 - Cauda equina syndrome Status: Acute Assessment and Plan: -neurosurgery consulted and plan for laminectomy -impaired emptying of stool and concerns for constipation. Started on stool softeners BID. (3) Right leg weakness: Code(s): R29.898 - Other symptoms and signs involving the musculoskeletal system Status: Acute (4) Aortic valve stenosis, moderate: Code(s): I35.0 - Nonrheumatic aortic (valve) stenosis Status: Acute Assessment and Plan: continue with home lisinopril and amlodipine SBP 140s/70s, stable (5) Chronic anemia: Code(s): D64.9 - Anemia, unspecified Status: Acute Assessment and Plan: Obtain anemia panel for the am On B12 at home, restart here Subjective Date/time seen: 01/06/23 16:23 Interval history: HPI from the chart This is a 72-year-old male with past history of hyperlipidemia, heart murmur, who presents the emergency department complaining of right hip pain, right lower extremity weakness and difficulty urinating.? The patient states 2 days ago, he started developing intermittent sharp and dull right hip pain.? At baseline, his pain is rated 2/10, but with intermittent movements, it increases to 9/10.? He also notes during this time difficulty urinating.? Today, he noticed right leg weakness.? He denies fevers, chills, trauma, falls or other recent change in his health or medications Interval history: 01/06: Patient seen this afternoon resting in bed with his at the bedside. He reports over the past week he has had increasing weakness and pain to his right lower extremity. He has also noticed that he has had difficulty with emptying his bladder. He presented to the ER yesterday when his right lower extremity weakness worsened. He also complains of constipation. CT imaging is concerning for cauda equina. Gonzalez catheter was placed with 1600 mils return. Neurosurgery is consulted and plans to take him for laminectomy this afternoon. Review of Systems Review of Systems: Lower back pain, right hip pain, right lower extremity weakness All systems reviewed & are unremarkable except as noted in HPI and below Exam Narrative: General: well-nourished, well-appearing 72-year-old male, sitting up in bed, comfortable, NARD Neuro: awake, alert and oriented x4, speech clear, no focal neuro deficits noted HEENMT: normocephalic, atraumatic, EOMI, sclerae anicteric, moist oral mucosa Respiratory: Clear to auscultation bilaterally without crackles, rhonchi or wheezes, nonlabored breathing Cardio: regular rate, regular rhythm with S1-S2 Abdomen: nondistended, hypoactive bowel sounds, soft, nontender to palpation Extremities: no edema, erythema, or tenderness to palpation, DP pulses 2+ bilaterally. Strength is decreased to his RLE and pain present with manipulation. Skin: no rashes or lesions, warm and dry Psych: appropriate mood and affect, judgment and insight intact Objective Data Vital Signs Vital Signs: Vital Signs - 24 hr 01/05/23 17:17 01/05/23 17:36 01/05/23 17:45 Temperature Pulse Rate 63 75 Respiratory Rate 18 18 Blood Pressure 173/78 H 179/81 H Pulse Oximetry 99 99 100 Oxygen Delivery 01/05/23 17:46 01/05/23 18:16 01/05/23 18:31 Temperature Pulse Rate 70 72 Respiratory Rate 17 17 18 Blood Pressure 153/70 H 175/87 H Pulse Oximetry 100 Oxygen Delivery 01/05/23 19:00 01/05/23 19:01 01/05/23 19:15 Temperature Pulse Rate 16 L Respiratory Rate 1
[2023-01-06] MEDS: fentaNYL CITRATE INJ (*CRX) 100 MCG/2 ML VIAL 25 MCG IV PUSH ×3 (16:43→16:57)
[2023-01-06] MEDS: oxyCODONE HCL (*CRX) 5 MG TAB IR PO (18:08)
[2023-01-06 19:02] LABS: Appearance Urine Clear (Clear); Bacteria Urine None Seen /hpf; Bilirubin Urine Negative (Negative); Blood Urine 3+ (Negative); Color Urine Yellow (Yellow); Glucose Urine UA Negative (Negative); Ketones Urine Trace mg/dL (Negative); Leukocyte Esterase Ur 2+ LEU/UL (Negative); Nitrate Urine Negative (Negative); Protein Urine 1+ mg/dL (Negative); RBC Urine >100 /hpf (0-2); Specific Grav Ur 1.021 (1.001-1.035); Squamous Epithelial Cell Urine None seen /hpf (Few); Urobilinogen Urine 0.2 mg/dL (<2.0); pH Urine 5.5 (5.0-9.0)
[2023-01-06 19:04] LABS: Add Urine Microscopic? YES
[2023-01-06] MEDS: oxyCODONE HCL (*CRX) 5 MG TAB IR 10 MG PO (22:09)
[2023-01-07 03:33] VITALS: BP 118/57; PULSE 80; RESP 18; TEMP 36.3; O2SAT 99
[2023-01-07] MEDS: ceFAZolin 2 GM/D5W 50 ML 2 GM/50 ML BAG IVPB ×3 (05:28→21:28)
[2023-01-07] MEDS: LEVOTHYROXINE SODIUM 50 MCG TABLET PO (05:29)
[2023-01-07] MEDS: oxyCODONE HCL (*CRX) 5 MG TAB IR 10 MG PO ×2 (05:29→13:16)
[2023-01-07 06:32] LABS: Basophils Percent Auto 0.2 % (0.2-1.2); Eosinophils Percent Auto 0.1 % (0-4.4); Hemoglobin 11.6 g/dL (14.0-18.0); Immature Granulocyte Absolute 0.03 K/mm3 (0.00-0.031); Immature Granulocyte Percent A 0.3 % (0-0.5); Lymphocytes Absolute Auto 1.13 K/mm3 (0.9-3.2); Lymphocytes Percent Auto 9.6 % (18.3-44.2); Mean Corpuscular HGB Conc 34.1 g/dl (32-36); Mean Corpuscular Hemoglobin 32.3 pg (26-34); Mean Corpuscular Volume 94.7 fl (80-100); Mean Platelet Volume 10.2 fl (7.4-10.4); Monocytes Absolute Auto 1.6 K/mm3 (0.1-0.6); Monocytes Percent Auto 13.8 % (2.6-8.5); Neutrophils Absolute Auto 8.9 K/mm3 (1.3-6.7); Platelet Count Result 298 k/mm3 (150-375); Red Blood Count 3.59 M/mm3 (4.6-6.20); Red Cell Distribution Width 12.9 % (11.5-14.5); White Blood Count 11.7 K/mm3 (4.5-10.0)
[2023-01-07 06:48] LABS: Anion Gap 8 mmol/L (8-16); Blood Urea Nitrogen 24 mg/dL (9-20); Calcium 9.1 mg/dL (8.4-10.2); Carbon Dioxide 26 mmol/L (22-30); Chloride 99 mmol/L (98-107); Estimated CRCL calculation 56 ml/min; Estimated Glomerular Filt Rate > 60; Glucose 125 mg/dL (65-110); Potassium 4.3 mmol/L (3.4-5.0); Sodium 133 mmol/L (137-145)
[2023-01-07 09:32] VITALS: BP 124/58; PULSE 84; RESP 18; TEMP 36.4; O2SAT 99
[2023-01-07] MEDS: DOCUSATE SODIUM 100 MG CAPSULE PO ×2 (09:35→21:28)
[2023-01-07] MEDS: MULTIVITAMINS THERAPEUTIC TAB (*BKC) 1 TABLET PO (09:35)
[2023-01-07] MEDS: lisinopriL 20 MG TABLET 40 MG PO (09:35)
[2023-01-07] MEDS: polyethylene glycoL 3350 17 GM POWD.PACK PO (09:35)
[2023-01-07] MEDS: amLODIPine BESYLATE 5 MG TABLET 10 MG PO (09:35)
[2023-01-07] MEDS: CYANOCOBALAMIN 1,000 MCG TABLET 1000 MCG PO (09:35)
[2023-01-07] MEDS: CHOLECALCIFEROL 1,000 UNITS TABLET 4000 UNITS PO (09:35)
[2023-01-07] MEDS: ACETAMINOPHEN 500 MG TABLET 1000 MG PO (09:40)
--- NOTE | 2023-01-07 14:43 | PM.IMPN ---
Progress Note: A&P Assessment and Plan (1) Acute urinary retention: Code(s): R33.8 - Other retention of urine Status: Acute Assessment and Plan: Simon catheter to be removed today and start void trial. (2) Cauda equina syndrome: Code(s): G83.4 - Cauda equina syndrome Status: Acute Assessment and Plan: [facility] anesthesia Neurosurgery consult Postop day 1 status post laminectomy L2 through L3 and revision laminectomy to L3 through 4. Pain control with oxycodone and p.r.n. 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 (4) Aortic valve stenosis, moderate: Code(s): I35.0 - Nonrheumatic aortic (valve) stenosis Status: Acute Assessment and Plan: Follow-up in outpatient setting Asymptomatic (5) Chronic anemia: Code(s): D64.9 - Anemia, unspecified Status: Acute Assessment and Plan: Continue to monitor Plan Continue postop care. Patient can be discharged once okay with Neurosurgery. Subjective Date/time seen: 01/07/23 14:43 Interval history: HPI from the chart This is a 72-year-old male with past history of hyperlipidemia, heart murmur, who presents the emergency department complaining of right hip pain, right lower extremity weakness and difficulty urinating.? The patient states 2 days ago, he started developing intermittent sharp and dull right hip pain.? At baseline, his pain is rated 2/10, but with intermittent movements, it increases to 9/10.? He also notes during this time difficulty urinating.? Today, he noticed right leg weakness.? He denies fevers, chills, trauma, falls or other recent change in his health or medications Interval history: 01/06: Patient seen this afternoon resting in bed with his at the bedside. He reports over the past week he has had increasing weakness and pain to his right lower extremity. He has also noticed that he has had difficulty with emptying his bladder. He presented to the ER yesterday when his right lower extremity weakness worsened. He also complains of constipation. CT imaging is concerning for cauda equina. Simon catheter was placed with 1600 mils return. Neurosurgery is consulted and plans to take him for laminectomy this afternoon. 01/07: Patient seen this morning just having finished breakfast in getting ready to work with therapy. He says that he is feeling better today than he was yesterday before surgery. He does have pain in is located at his incision site. It is controlled with the p.r.n. medications. He still has a Simon in place, nursing is getting ready to remove. His improve mobility to his right lower extremity. He is able to lift it off of the bed today. He denies pain, numbness, and tingling to his lower extremities. Continue postop care discharge when okay with Neurosurgery. Review of Systems Review of Systems: All systems reviewed & are unremarkable except as noted in HPI and below Exam Narrative: General: well-nourished, well-appearing 72-year-old male, sitting up in bed, comfortable, NARD Neuro: awake, alert and oriented x4, speech clear, no focal neuro deficits noted HEENMT: normocephalic, atraumatic, EOMI, sclerae anicteric, moist oral mucosa Respiratory: Clear to auscultation bilaterally without crackles, rhonchi or wheezes, nonlabored breathing Cardio: regular rate, regular rhythm with S1-S2 Abdomen: nondistended, hypoactive bowel sounds, soft, nontender to palpation Extremities: no edema, erythema, or tenderness to palpation, DP pulses 2+ bilaterally. Strength is improved to his RLE, now able to lift off of the bed. Skin: no rashes or lesions, warm and dry Psych: appropriate mood and affect, judgment and insight intact Objective Data Vital Signs Vital Signs: Vi
--- NOTE | 2023-01-07 15:08 | WPDNEUROSGPN ---
Progress Note: A&P Assessment and Plan (1) Spondylolisthesis, lumbar region: Code(s): M43.16 - Spondylolisthesis, lumbar region Status: Acute Plan 72 year old male who presented with weakness and urinary retention in setting of lumbar stenosis s/p lumbar decompression by Dr. Palomares 01/06 Gonzalez d/c'ed this am Will likely d/c hemovac drain this afternoon Straight cath if no void after 6 hours. If recurrent need for SC will likely recommend replacement of gonzalez and outpatient follow up with urology Anticipate that migel can likely d./c to home on 01/08 pending determination whether he can independently void and pain control He should follow up with Dr. Palomares in 6 weeks in neurosurgery clinic Time Spent With Patient Time with patient: 15 - 25 minutes Subjective Date/time seen: 01/07/23 15:08 Interval history: Patient notes improvement in pain and strength No voiding since catheter removed this am AMbulated today with PT Exam Narrative: AWake, alert oriented x 3 Speech CF ELIO eOMI Face= TML MAEW with good strength Incision CDI Objective Data Vital Signs Vital Signs: Vital Signs - 24 hr 01/06/23 16:20 01/06/23 16:35 01/06/23 16:50 Temperature 98.1 F Pulse Rate 91 87 90 Respiratory Rate 16 19 20 Blood Pressure 126/63 129/61 126/66 Pulse Oximetry 99 99 95 Oxygen Delivery Simple Face Mask Simple Face Mask Room Air Oxygen Flow Rate 8 8 01/06/23 17:05 01/06/23 17:48 01/06/23 17:55 Temperature 97.9 F Pulse Rate 83 81 Respiratory Rate 16 16 Blood Pressure 130/64 128/58 L Pulse Oximetry 93 96 96 Oxygen Delivery Room Air Room Air Oxygen Flow Rate 01/06/23 17:30 01/06/23 18:25 01/06/23 19:33 Temperature 97.8 F 97.7 F 97.1 F L Pulse Rate 79 84 72 Respiratory Rate 16 16 20 Blood Pressure 128/54 L 131/55 L 125/60 Pulse Oximetry 97 96 96 Oxygen Delivery Oxygen Flow Rate 01/06/23 20:00 01/07/23 03:33 01/07/23 09:32 Temperature 97.4 F L 97.6 F Pulse Rate 72 80 84 Respiratory Rate 20 18 18 Blood Pressure 118/57 L 124/58 L Pulse Oximetry 96 99 99 Oxygen Delivery Room Air Oxygen Flow Rate 01/07/23 10:26 01/07/23 09:30 Temperature Pulse Rate Respiratory Rate Blood Pressure Pulse Oximetry Oxygen Delivery Room Air Room Air Oxygen Flow Rate Intake/Output Intake/Output: Intake & Output 01/04/23 01/05/23 01/06/23 01/07/23 23:59 23:59 23:59 23:59 Intake Total 1590 730 Output Total 1200 4900 1140 [facility] [id number] [id number] [phone] Meds/Results Medications: Active Medications Generic Name Dose Route Start Last Admin Trade Name Freq PRN Reason Stop Dose Admin Acetaminophen 1,000 mg 01/06/23 16:33 01/07/23 09:40 Acetaminophen 500 Mg Tablet PO 1,000 mg Q6H PRN Administration Mild Pain (1-3) Al Hydrox/Mg Hydrox/Simethicone 20 ml 01/06/23 16:33 Mag Hydrox/Al Hydrox/Simeth 30 Ml Udc PO Q4H PRN Indigestion/Heartburn Amlodipine Besylate 10 mg 01/06/23 09:00 01/07/23 09:35 Amlodipine Besylate 5 Mg Tablet PO 10 mg DAILY MAURICIO Administration Ascorbic Acid 500 mg 01/06/23 09:00 01/06/23 11:18 Ascorbic Acid 500 Mg Tablet PO Not Given Q48H MAURICIO Bisacodyl 10 mg 01/06/23 16:33 Bisacodyl 10 Mg Suppository RECTAL DAILY PRN Constipation Cyanocobalamin 1,000 mcg 01/06/23 09:00 01/07/23 09:35 Cyanocobalamin 1,000 Mcg Tablet PO 1,000 mcg DAILY MAURICIO Administration Cyclobenzaprine HCl 10 mg 01/06/23 16:33 Cyclobenzaprine Hcl 10 Mg Tablet PO TID PRN Muscle Spasms Docusate Sodium 100 mg 01/06/23 21:00 01/07/23 09:35 Docusate Sodium 100 Mg Capsule PO 100 mg Q12HR MAURICIO Administration Lactated Ringer's 1,000 mls @ 30 mls/hr 01/06/23 14:05 01/06/23 16:18 Lr - Lactated Ringers Iv IV CONT Infused .Q24H MAURICIO Infusion Cefazolin Sodium 2 gm in 50 mls @ 100 mls/hr 01/06/23 22:01/07/23 13:47 Ancef 2 Gm/D5w 50 Ml IVPB Infused Q8H MAURICIO
[2023-01-07 18:50] VITALS: BP 150/67; PULSE 78; RESP 16; TEMP 36.9; O2SAT 100
[2023-01-07 19:32] VITALS: BP 140/89; PULSE 85; RESP 20; TEMP 36.6; O2SAT 99
[2023-01-07 20:00] VITALS: PULSE 85; RESP 20; O2SAT 99
[2023-01-07 23:52] VITALS: BP 162/66; PULSE 86; RESP 20; TEMP 36.8; O2SAT 98
[2023-01-08] MEDS: BISACODYL 10 MG SUPPOSITORY RECTAL ×2 (00:53→23:25)
[2023-01-08] MEDS: oxyCODONE HCL (*CRX) 5 MG TAB IR 10 MG PO ×3 (01:07→15:28)
[2023-01-08 04:23] VITALS: BP 136/59; PULSE 83; RESP 20; TEMP 36.6; O2SAT 97
[2023-01-08] MEDS: MAG HYDROX/AL HYDROX/SIMETH 30 ML UDC 20 ML PO (04:39)
[2023-01-08] MEDS: ceFAZolin 2 GM/D5W 50 ML 2 GM/50 ML BAG IVPB ×3 (05:31→21:07)
[2023-01-08] MEDS: LEVOTHYROXINE SODIUM 50 MCG TABLET PO (05:31)
[2023-01-08 06:02] LABS: Basophils Absolute Auto 0.1 K/mm3 (0.0-0.1); Basophils Percent Auto 0.6 % (0.2-1.2); Eosinophils Absolute Auto 0.1 K/mm3 (0-0.3); Eosinophils Percent Auto 0.6 % (0-4.4); Hematocrit 32.9 % (42.0-52.0); Hemoglobin 11.3 g/dL (14.0-18.0); Immature Granulocyte Absolute 0.04 K/mm3 (0.00-0.031); Immature Granulocyte Percent A 0.3 % (0-0.5); Lymphocytes Absolute Auto 1.19 K/mm3 (0.9-3.2); Lymphocytes Percent Auto 9.5 % (18.3-44.2); Mean Corpuscular HGB Conc 34.3 g/dl (32-36); Mean Corpuscular Hemoglobin 32.8 pg (26-34); Mean Corpuscular Volume 95.6 fl (80-100); Mean Platelet Volume 9.8 fl (7.4-10.4); Monocytes Absolute Auto 1.8 K/mm3 (0.1-0.6); Monocytes Percent Auto 14.3 % (2.6-8.5); Neutrophils Absolute Auto 9.3 K/mm3 (1.3-6.7); Neutrophils Percent Auto 74.7 % (45.5-73.1); Platelet Count Result 286 k/mm3 (150-375); Red Blood Count 3.44 M/mm3 (4.6-6.20); Red Cell Distribution Width 13.2 % (11.5-14.5); White Blood Count 12.5 K/mm3 (4.5-10.0)
[2023-01-08 06:28] LABS: Alanine Aminotransferase 13 U/L (6-50); Albumin Level 4.1 g/dL (3.5-5.1); Alkaline Phosphatase 54 U/L (38-126); Anion Gap 4 mmol/L (8-16); Aspartate Amino Transferase 26 U/L (17-59); Bilirubin,Total 0.4 mg/dL (0.2-1.3); Blood Urea Nitrogen 22 mg/dL (9-20); Calcium 8.9 mg/dL (8.4-10.2); Carbon Dioxide 25 mmol/L (22-30); Chloride 99 mmol/L (98-107); Estimated CRCL calculation 56 ml/min; Estimated Glomerular Filt Rate > 60; Glucose 116 mg/dL (65-110); Potassium 4.3 mmol/L (3.4-5.0); Sodium 128 mmol/L (137-145)
--- NOTE | 2023-01-08 08:11 | PM.IMPN ---
Progress Note: A&P Assessment and Plan (1) Acute urinary retention: Code(s): R33.8 - Other retention of urine Status: Acute Assessment and Plan: Gonzalez removed Voiding spontaneously with some residual of approximately 400 ml Will start flomax today (2) Cauda equina syndrome: Code(s): G83.4 - Cauda equina syndrome Status: Acute Assessment and Plan: New saddle anesthesia Neurosurgery consult Postop day 2 status post laminectomy L2 through L3 and revision laminectomy to L3 through 4. Pain control with oxycodone and p.r.n. 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 (4) Aortic valve stenosis, moderate: Code(s): I35.0 - Nonrheumatic aortic (valve) stenosis Status: Acute Assessment and Plan: Follow-up in outpatient setting Asymptomatic (5) Chronic anemia: Code(s): D64.9 - Anemia, unspecified Status: Acute Assessment and Plan: Continue to monitor Plan Start Flomax for retention Include Flexeril in current pain regimen Will benefit from another day of PT and observation for pain management DC possibly tomorrow Subjective Date/time seen: 01/08/23 08:11 Interval history: HPI from the chart This is a 72-year-old male with past history of hyperlipidemia, heart murmur, who presents the emergency department complaining of right hip pain, right lower extremity weakness and difficulty urinating.? The patient states 2 days ago, he started developing intermittent sharp and dull right hip pain.? At baseline, his pain is rated 2/10, but with intermittent movements, it increases to 9/10.? He also notes during this time difficulty urinating.? Today, he noticed right leg weakness.? He denies fevers, chills, trauma, falls or other recent change in his health or medications Interval history: 01/06: Patient seen this afternoon resting in bed with his at the bedside. He reports over the past week he has had increasing weakness and pain to his right lower extremity. He has also noticed that he has had difficulty with emptying his bladder. He presented to the ER yesterday when his right lower extremity weakness worsened. He also complains of constipation. CT imaging is concerning for cauda equina. Gonzalez catheter was placed with 1600 mils return. Neurosurgery is consulted and plans to take him for laminectomy this afternoon. 01/07: Patient seen this morning just having finished breakfast in getting ready to work with therapy. He says that he is feeling better today than he was yesterday before surgery. He does have pain in is located at his incision site. It is controlled with the p.r.n. medications. He still has a Gonzalez in place, nursing is getting ready to remove. His improve mobility to his right lower extremity. He is able to lift it off of the bed today. He denies pain, numbness, and tingling to his lower extremities. Continue postop care discharge when okay with Neurosurgery. 01/08: Patient says he is having a lot of incisional pain today and feels like he is not ready to go home because of the pain. He is not sure he will be able to manage at home with the way the pain is currently. He says the oxycodone is helping but he still feels pretty miserable. He has not yet received his flexeril so I asked staff to administer that now. He has been voiding since the gonzalez removal but continues to have urine retention of about 400 ml. He does not feel like he is retaining. Will start flomax today. I discussed plan with Dr Lomeli with neurosurgery who is agreeable to the plan. Exam Narrative: General: well-nourished, well-appearing 72-year-old male, laying in bed, appears uncomfortable. NARD Neuro: awake, alert and oriented x4, speech clear, no focal neuro deficit
[2023-01-08 09:00] VITALS: BP 152/71; PULSE 82; RESP 16; O2SAT 100
[2023-01-08] MEDS: polyethylene glycoL 3350 17 GM POWD.PACK PO (09:02)
[2023-01-08] MEDS: MULTIVITAMINS THERAPEUTIC TAB (*BKC) 1 TABLET PO (09:02)
[2023-01-08] MEDS: CYANOCOBALAMIN 1,000 MCG TABLET 1000 MCG PO (09:03)
[2023-01-08] MEDS: DOCUSATE SODIUM 100 MG CAPSULE PO ×2 (09:03→21:07)
[2023-01-08] MEDS: ASCORBIC ACID 500 MG TABLET PO (09:03)
[2023-01-08] MEDS: lisinopriL 20 MG TABLET 40 MG PO (09:03)
[2023-01-08] MEDS: amLODIPine BESYLATE 5 MG TABLET 10 MG PO (09:04)
[2023-01-08] MEDS: CHOLECALCIFEROL 1,000 UNITS TABLET 4000 UNITS PO (09:22)
--- NOTE | 2023-01-08 10:02 | PCOTNOTE ---
Pt requested that therapist attempt at a later time today due to needing to sleep and would like his muscle relaxer to work first. Pt states that he would like to take a shower today.
[2023-01-08] MEDS: CYCLOBENZAPRINE HCL 10 MG TABLET PO ×3 (10:53→18:50)
[2023-01-08] MEDS: TAMSULOSIN HCL 0.4 MG CAPSULE PO (14:14)
[2023-01-08 14:55] VITALS: BP 159/66; PULSE 91; RESP 16; TEMP 36.7; O2SAT 98
[2023-01-08 20:00] VITALS: PULSE 91; RESP 16; O2SAT 98
[2023-01-08 22:05] VITALS: BP 141/71; PULSE 95; RESP 21; TEMP 36.9; O2SAT 100
[2023-01-09] MEDS: MAG HYDROX/AL HYDROX/SIMETH 30 ML UDC 20 ML PO (00:46)
[2023-01-09 02:25] VITALS: BP 136/66; PULSE 95; RESP 18; TEMP 37; O2SAT 95
[2023-01-09] MEDS: ceFAZolin 2 GM/D5W 50 ML 2 GM/50 ML BAG IVPB ×2 (05:35→14:36)
[2023-01-09] MEDS: LEVOTHYROXINE SODIUM 50 MCG TABLET PO (05:36)
[2023-01-09] MEDS: oxyCODONE HCL (*CRX) 5 MG TAB IR 10 MG PO (05:36)
[2023-01-09 05:52] LABS: Basophils Absolute Auto 0.1 K/mm3 (0.0-0.1); Basophils Percent Auto 0.6 % (0.2-1.2); Eosinophils Percent Auto 0.2 % (0-4.4); Hematocrit 34.4 % (42.0-52.0); Hemoglobin 11.7 g/dL (14.0-18.0); Immature Granulocyte Absolute 0.04 K/mm3 (0.00-0.031); Immature Granulocyte Percent A 0.3 % (0-0.5); Lymphocytes Absolute Auto 1.33 K/mm3 (0.9-3.2); Mean Corpuscular Hemoglobin 32.4 pg (26-34); Mean Corpuscular Volume 95.3 fl (80-100); Mean Platelet Volume 9.7 fl (7.4-10.4); Monocytes Absolute Auto 1.7 K/mm3 (0.1-0.6); Monocytes Percent Auto 12.5 % (2.6-8.5); Neutrophils Absolute Auto 10.1 K/mm3 (1.3-6.7); Neutrophils Percent Auto 76.4 % (45.5-73.1); Platelet Count Result 318 k/mm3 (150-375); Red Blood Count 3.61 M/mm3 (4.6-6.20); White Blood Count 13.3 K/mm3 (4.5-10.0)
[2023-01-09 06:03] LABS: Anion Gap 8 mmol/L (8-16); Blood Urea Nitrogen 20 mg/dL (9-20); Calcium 9.1 mg/dL (8.4-10.2); Carbon Dioxide 25 mmol/L (22-30); Chloride 98 mmol/L (98-107); Estimated CRCL calculation 61 ml/min; Estimated Glomerular Filt Rate > 60; Glucose 141 mg/dL (65-110); Potassium 4.1 mmol/L (3.4-5.0); Sodium 131 mmol/L (137-145)
--- NOTE | 2023-01-09 08:16 | PM.IMPN ---
Progress Note: A&P Assessment and Plan (1) Acute urinary retention: Code(s): R33.8 - Other retention of urine Status: Acute Assessment and Plan: Gonzalez removed Voiding spontaneously with some residual of approximately 400 ml Will start flomax today (2) Cauda equina syndrome: Code(s): G83.4 - Cauda equina syndrome Status: Acute Assessment and Plan: New saddle anesthesia Neurosurgery consult Postop day 2 status post laminectomy L2 through L3 and revision laminectomy to L3 through 4. WBC 13.3. Suspect reactive from recent surgery. Patient is afebrile. Pain control with oxycodone and p.r.n. 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 (4) Aortic valve stenosis, moderate: Code(s): I35.0 - Nonrheumatic aortic (valve) stenosis Status: Acute Assessment and Plan: Follow-up in outpatient setting Asymptomatic (5) Chronic anemia: Code(s): D64.9 - Anemia, unspecified Status: Acute Assessment and Plan: Continue to monitor Plan Start Flomax for retention Include Flexeril in current pain regimen Will benefit from another day of PT and observation for pain management DC possibly tomorrow Subjective Date/time seen: 01/09/23 08:16 Interval history: HPI from the chart This is a 72-year-old male with past history of hyperlipidemia, heart murmur, who presents the emergency department complaining of right hip pain, right lower extremity weakness and difficulty urinating.? The patient states 2 days ago, he started developing intermittent sharp and dull right hip pain.? At baseline, his pain is rated 2/10, but with intermittent movements, it increases to 9/10.? He also notes during this time difficulty urinating.? Today, he noticed right leg weakness.? He denies fevers, chills, trauma, falls or other recent change in his health or medications Interval history: 01/06: Patient seen this afternoon resting in bed with his at the bedside. He reports over the past week he has had increasing weakness and pain to his right lower extremity. He has also noticed that he has had difficulty with emptying his bladder. He presented to the ER yesterday when his right lower extremity weakness worsened. He also complains of constipation. CT imaging is concerning for cauda equina. Gonzalez catheter was placed with 1600 mils return. Neurosurgery is consulted and plans to take him for laminectomy this afternoon. 01/07: Patient seen this morning just having finished breakfast in getting ready to work with therapy. He says that he is feeling better today than he was yesterday before surgery. He does have pain in is located at his incision site. It is controlled with the p.r.n. medications. He still has a Gonzalez in place, nursing is getting ready to remove. His improve mobility to his right lower extremity. He is able to lift it off of the bed today. He denies pain, numbness, and tingling to his lower extremities. Continue postop care discharge when okay with Neurosurgery. 01/08: Patient says he is having a lot of incisional pain today and feels like he is not ready to go home because of the pain. He is not sure he will be able to manage at home with the way the pain is currently. He says the oxycodone is helping but he still feels pretty miserable. He has not yet received his flexeril so I asked staff to administer that now. He has been voiding since the gonzalez removal but continues to have urine retention of about 400 ml. He does not feel like he is retaining. Will start flomax today. I discussed plan with Dr Lomeli with neurosurgery who is agreeable to the plan. Review of Systems Review of Systems: Lower back pain, right hip pain, right lower extremity weakness Exam Narrativ
[2023-01-09 08:31] VITALS: BP 153/77; PULSE 90; RESP 16; O2SAT 99
[2023-01-09] MEDS: amLODIPine BESYLATE 5 MG TABLET 10 MG PO (08:32)
[2023-01-09] MEDS: CHOLECALCIFEROL 1,000 UNITS TABLET 4000 UNITS PO (08:32)
[2023-01-09] MEDS: DOCUSATE SODIUM 100 MG CAPSULE PO (08:32)
[2023-01-09] MEDS: lisinopriL 20 MG TABLET 40 MG PO (08:32)
[2023-01-09] MEDS: polyethylene glycoL 3350 17 GM POWD.PACK PO (08:33)
[2023-01-09] MEDS: TAMSULOSIN HCL 0.4 MG CAPSULE PO (08:33)
[2023-01-09] MEDS: CYANOCOBALAMIN 1,000 MCG TABLET 1000 MCG PO (08:33)
[2023-01-09] MEDS: CYCLOBENZAPRINE HCL 10 MG TABLET PO ×3 (08:33→17:16)
[2023-01-09] MEDS: MULTIVITAMINS THERAPEUTIC TAB (*BKC) 1 TABLET PO (08:34)
[2023-01-09 11:32] VITALS: BP 159/69; PULSE 96; RESP 18; TEMP 36.7; O2SAT 98
--- NOTE | 2023-01-09 13:26 | PCOTNOTE ---
Attempted to see pt for Occupational Therapy treatment. Pt declined to participate in therapy session today due to another poor night of sleep influenced by pain. Per RN, pt will be possibly d/c today. Pt states no questions or concerns at this time.
[2023-01-09 14:35] VITALS: BP 155/73; PULSE 92; RESP 16; TEMP 36.6; O2SAT 100
--- NOTE | 2023-01-09 15:33 | PM.DS ---
DS: Admitting Diagnosis Discharge Date TuesdayJanuary 09 Admitting Diagnosis Acute urinary retention DS: Discharge Diagnosis Discharge Diagnosis (1) Acute urinary retention: Code(s): R33.8 - Other retention of urine Status: Acute Assessment and Plan: Gonzalez removed Voiding spontaneously with some residual of approximately 400 ml Will start flomax today (2) Cauda equina syndrome: Code(s): G83.4 - Cauda equina syndrome Status: Acute Assessment and Plan: New saddle anesthesia Neurosurgery consult Postop day 2 status post laminectomy L2 through L3 and revision laminectomy to L3 through 4. WBC 13.3. Suspect reactive from recent surgery. Patient is afebrile. Pain control with oxycodone and p.r.n. 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 (4) Aortic valve stenosis, moderate: Code(s): I35.0 - Nonrheumatic aortic (valve) stenosis Status: Acute Assessment and Plan: Follow-up in outpatient setting Asymptomatic (5) Chronic anemia: Code(s): D64.9 - Anemia, unspecified Status: Acute Assessment and Plan: Continue to monitor Plan Start Flomax for retention Include Flexeril in current pain regimen Will benefit from another day of PT and observation for pain management DC possibly tomorrow DS: Summary Hospital Course Hospital Course: Interval history: HPI from the chart This is a 72-year-old male with past history of hyperlipidemia, heart murmur, who presents the emergency department complaining of right hip pain, right lower extremity weakness and difficulty urinating.? The patient states 2 days ago, he started developing intermittent sharp and dull right hip pain.? At baseline, his pain is rated 2/10, but with intermittent movements, it increases to 9/10.? He also notes during this time difficulty urinating.? Today, he noticed right leg weakness.? He denies fevers, chills, trauma, falls or other recent change in his health or medications Interval history: ? 01/06:? Patient seen this afternoon resting in bed with his at the bedside.? He reports over the past week he has had increasing weakness and pain to his right lower extremity.? He has also noticed that he has had difficulty with emptying his bladder.? He presented to the ER yesterday when his right lower extremity weakness worsened.? He also complains of constipation.? CT imaging is concerning for cauda equina.? Gonzalez catheter was placed with 1600 mils return.? Neurosurgery is consulted and plans to take him for laminectomy this afternoon. 01/07:? Patient seen this morning just having finished breakfast in getting ready to work with therapy.? He says that he is feeling better today than he was yesterday before surgery.? He does have pain in is located at his incision site.? It is controlled with the p.r.n. medications.? He still has a Gonzalez in place, nursing is getting ready to remove.? His improve mobility to his right lower extremity.? He is able to lift it off of the bed today. He denies pain, numbness, and tingling to his lower extremities.? Continue postop care discharge when okay with Neurosurgery. 01/08: Patient says he is having a lot of incisional pain today and feels like he is not ready to go home because of the pain. He is not sure he will be able to manage at home with the way the pain is currently. He says the oxycodone is helping but he still feels pretty miserable. He has not yet received his flexeril so I asked staff to administer that now. He has been voiding since the gonzalez removal but continues to have urine retention of about 400 ml. He does not feel like he is retaining. Will start flomax today. I discussed plan with Dr Lomeli with neurosurgery who is agreeable to the plan. 01/09: Patient derek
== END 2023-01-09 17:20 | disposition home health service (06) | DRG 516 ==
LOC: ANHED 18:05 → ANH2MED 22:24
PROVIDERS: Neurological Surgery; Admitting Provider Internal Medicine; Emergency Provider Preventive Medicine Aerospace Medicine; PCP Hospitalist; Visit Provider Nurse Practitioner Acute Care
PROC: 01NB0ZZ Release Lumbar Nerve, Open Approach (ICD-10-PCS; CPT 63005; principal; 2023-01-06 14:00)
DX: M48.061 Spinal stenosis, lumbar region without neurogenic claudication (principal); G83.4 Cauda equina syndrome; M43.16 Spondylolisthesis, lumbar region; M47.816 Spondylosis without myelopathy or radiculopathy, lumbar region; Z98.890 Other specified postprocedural states; R33.8 Other retention of urine; I35.0 Nonrheumatic aortic (valve) stenosis; G56.00 Carpal tunnel syndrome, unspecified upper limb; E78.5 Hyperlipidemia, unspecified; E03.9 Hypothyroidism, unspecified; I10 Essential (primary) hypertension; D64.9 Anemia, unspecified; Z96.649 Presence of unspecified artificial hip joint
CPT/HCPCS: 36415; 72128; 72131; 72158; 72170; 80048; 80053; 81001; 82728; 85025; 85610; 85730; 87086; 97116; 97162; 97165; 97535; 99199; 99285; A9270; A9577; G0378; J0690; J1170; J2250; J3010; J7120

== ENCOUNTER 2023-04-27 13:31 | Outpatient (CLI) | payer MEDICARE, SELFPAY ==
--- NOTE | 2023-04-27 14:37 | ECG_ITS ---
Measurements Intervals [place] Rate: 71 P: 48 ND: 234 QRS: -6 QRSD: 101 T: 15 QT: 370 QTc: 403 Interpretive Statements SINUS RHYTHM WITH FIRST DEGREE AV BLOCK ANTEROSEPTAL INFARCT, AGE INDETERMINATE BASELINE ARTIFACT- I, II, III, AVR, AVL, AVF, V2 ABNORMAL ECG NO PREVIOUS ECG AVAILABLE FOR COMPARISON Electronically Signed On 04-27-2023 15:23:58 [facility]AKER HEAD by Deep Collado D.O.
[2023-04-27 15:07] LABS: Basophils Absolute Auto 0.1 K/mm3 (0.0-0.1); Basophils Percent Auto 1.8 % (0.2-1.2); Eosinophils Absolute Auto 0.2 K/mm3 (0-0.3); Eosinophils Percent Auto 3.7 % (0-4.4); Hemoglobin 11.1 g/dL (14.0-18.0); Immature Granulocyte Absolute 0.02 K/mm3 (0.00-0.031); Immature Granulocyte Percent A 0.4 % (0-0.5); Lymphocytes Absolute Auto 1.76 K/mm3 (0.9-3.2); Mean Corpuscular HGB Conc 34.7 g/dl (32-36); Mean Corpuscular Hemoglobin 32.6 pg (26-34); Mean Corpuscular Volume 93.8 fl (80-100); Mean Platelet Volume 9.8 fl (7.4-10.4); Monocytes Absolute Auto 0.8 K/mm3 (0.1-0.6); Monocytes Percent Auto 14.1 % (2.6-8.5); Neutrophils Absolute Auto 2.8 K/mm3 (1.3-6.7); Platelet Count Result 272 k/mm3 (150-375); Red Blood Count 3.41 M/mm3 (4.6-6.20); Red Cell Distribution Width 14.4 % (11.5-14.5); White Blood Count 5.7 K/mm3 (4.5-10.0)
[2023-04-27 15:18] LABS: Albumin Level 4.9 g/dL (3.5-5.1); Anion Gap 13 mmol/L (8-16); Blood Urea Nitrogen 13 mg/dL (9-20); Calcium 9.5 mg/dL (8.4-10.2); Carbon Dioxide 22 mmol/L (22-30); Chloride 95 mmol/L (98-107); Estimated Glomerular Filt Rate > 60; Glucose 86 mg/dL (65-110); Potassium 4.6 mmol/L (3.4-5.0); Sodium 130 mmol/L (137-145)
[2023-04-27 15:20] LABS: Prothrombin Time 13.5 Seconds (11.1-14.7)
[2023-04-27 15:21] LABS: Partial Thromboplastin Time 30.4 SECONDS (22.3-36.8)
[2023-04-27 15:24] LABS: Appearance Urine Clear (Clear); Bacteria Urine None Seen /hpf; Bilirubin Urine Negative (Negative); Blood Urine Negative (Negative); Color Urine Yellow (Yellow); Glucose Urine UA Negative (Negative); Ketones Urine Negative (Negative); Leukocyte Esterase Ur Negative LEU/UL (Negative); Need Manual Microscopic Reviewed; Nitrate Urine Negative (Negative); Non Pathogenic Casts 0-2; Protein Urine Trace mg/dL (Negative); RBC Urine 0-2 /hpf (0-2); Specific Grav Ur 1.007 (1.001-1.035); Squamous Epithelial Cell Urine None seen /hpf (Few); Urobilinogen Urine 0.2 mg/dL (<2.0); WBC Urine 0-5 /hpf
[2023-04-27 15:25] LABS: Add Urine Microscopic? YES
[2023-04-27 15:27] LABS: Hemoglobin A1C 4.9 % (<5.7)
[2023-04-27 15:29] LABS: Urine Cotinine NEGATIVE
== END 2023-04-27 13:32 | disposition home or self-care (01) ==
LOC: ANHSURGERY 13:36
PROVIDERS: PCP Hospitalist; Visit Provider Orthopaedic Surgery
DX: Z01.818 Encounter for other preprocedural examination (principal); M16.11 Unilateral primary osteoarthritis, right hip; R94.31 Abnormal electrocardiogram [ECG] [EKG]
CPT/HCPCS: 80048; 80307; 81001; 82040; 83036; 85025; 85610; 85730; 86850; 86900; 86901; 87081; 93005

== ENCOUNTER 2023-05-10 01:59 | Day surgery (SDC) | payer MEDICARE, SELFPAY ==
[2023-04-27 13:42] VITALS: BMI 27.2
--- NOTE | 2023-04-27 14:04 | PC.NURSE ---
Report to the Outpatient Waiting Room, entrance under the green pavilion located off [facility], at time __0900 on date _05/10/23 . Planned Procedure Time: __1100 . Time changes happen often and if your time is changed the preop area will call you the afternoon before. - You and your visitor will be asked to self-screen and do not enter if you have any COVID symptoms. - A mask is optional within the hospital at this time. Patients may have clear liquids (water, carbonated beverages, clear teas, apple juice) until 3 hours prior to surgery with a maximum of 20 ounces. - No food from midnight until time of surgery - Infants may have breast milk until 4 hours before surgery, formula 6 hours prior to surgery. - Children will be allowed to drink immediately following surgery. If applicable, please bring a bottle or sippy cup to assist with drinking. Juice, water, soda, and popsicles are readily available. For infants on formula, please bring formula the day of surgery. Pacifiers are allowed. Take the following medications with a SIP of water the morning of surgery: ____AMLODIPINE,LEVOTHYROXINE DO NOT STOP ANY OF YOUR OTHER PRESCRIPTION MEDICATIONS PRIOR TO SURGERY ?EXCEPT THE FOLLOWING Medications to discontinue per physician __IBUPROFEN PER DR MUNSON. ALL VITAMINS 3 DAYS PRE OP.LAST DOSE 05/06/23 Please no make-up, nail greenlandic, hairspray, perfume, deodorant, or body powder the day of surgery. No jewelry (including any body piercings) or valuables the day of surgery, leave them at home. Please take a shower or bath the night before, or the morning of, surgery with an antibacterial soap. Wear comfortable, loose fitting clothing. Children are encouraged to wear pajamas. - Jewelry must be removed prior to entering the operating room. Rings and piercings that are not removed may be cut off. - The hospital will not accept responsibility for valuables. - Please leave all valuables, including medications, at home the day of surgery. If you are going home after surgery, a licensed school bus driver/teacher assistant must drive you home. - NO public transportation without another adult if you receive anesthesia. - We recommend that an adult stay with you for 24 hours following discharge. - We also recommend that you do not drive, make important decision, drink alcoholic beverages, or take any drugs that were not prescribed by your health care provider for at least 24 hours after your discharge time. For Pediatric surgeries, we recommend two adults accompany the child home. Follow any additional instructions given to you from your surgeon. If you or anyone in your household have experienced Covid symptoms in the past week, please notify your surgeon or the nurse liaison at the phone number below for possible testing. VERBAL AND WRITTEN instructions given to _PATIENT and asked if any additional questions and then verbalized understanding. Patient advised to call surgeon office or pre surgery nurse liaison [phone] if any additional questions.
[2023-04-27 14:25] VITALS: BP 136/71; PULSE 70; RESP 18; TEMP 37.2; O2SAT 100
--- NOTE | 2023-05-09 15:02 | WPDANESEPPF ---
Anes - Initial Pre Proc Eval Procedure: Operation Date: 05/10/23 11:00 Proposed Procedures p Right Total Hip Arthroplasty - Lg Mendiola MD Date/Time: 05/09/23 15:02 Surgeon: Lg Mendiola MD Pre Op Diagnosis: right hip DJD Patient Data Age: 72 Gender: M Height: 1.78 m Weight: 86.2 kg Last Vital Signs Temp 37.2 C 04/27/23 14:25 Pulse 70 04/27/23 14:25 Resp 18 04/27/23 14:25 BP 136/71 04/27/23 14:25 Pulse Ox 100 04/27/23 14:25 O2 Del Method Room Air 04/27/23 14:25 Allergies Allergy/AdvReac Type Severity Reaction Status Date / Time No Known Drug Allergies Allergy Unknown Unknown Verified 05/02/23 09:06 Home Medications Medication Instructions Recorded Confirmed Type cholecalciferol (vitamin D3) 50 4,000 unit PO DAILY 08/23/19 04/27/23 History mcg (2,000 unit) chewable tablet cyanocobalamin (vitamin B-12) 1,000 mcg PO DAILY #90 tabs 08/23/19 04/27/23 Rx 1,000 mcg tablet (Vitamin B-12) multivitamin 1 cap PO DAILY #90 caps 08/23/19 04/27/23 Rx amlodipine 10 mg tablet 10 mg PO DAILY #90 tabs 12/25/21 04/27/23 Rx levothyroxine 50 mcg tablet 50 mcg PO DAILY #30 tabs 08/30/22 04/27/23 Rx ascorbate calcium (vitamin C) 500 500 mg PO EVERY OTHER DAY 01/05/23 04/27/23 History mg tablet lisinopril 40 mg tablet 40 mg PO DAILY 01/05/23 04/27/23 History nwu-cck-[id number] acid 1,000 1 ea PO EVERY OTHER DAY 01/05/23 04/27/23 History mg-herbal 350 mg oral efferves powder pack (Airborne (ascorbic acid)) cholecalciferol (vitamin D3) 50 50 mcg PO DAILY 04/27/23 04/27/23 History mcg (2,000 unit) tablet ibuprofen 400 mg tablet 400 mg PO Q6H PRN Pain 04/27/23 04/27/23 History chlorhexidine gluconate 4 % 1 applic topical ONCE #237 mL 04/28/23 Rx topical liquid (Hibiclens) Patient hx anesthesia problems: none Family hx anesthesia problems: none Results Review: All pre-operative results and documents have been reviewed as part of the pre-operative evaluation. [facility] Past Medical History Medical History (Updated 05/02/23 @ 10:05 by VIKRAM Merrill) Abnormal colonoscopy (~08/2012) polyp - Dr Eugene Aortic valve stenosis, moderate Cardiac murmur Carpal tunnel syndrome Chronic anemia Dyslipidemia Erectile dysfunction Essential (primary) hypertension Hyponatremia Hypothyroid Vitamin D deficiency Surgical History Surgical History H/O elbow surgery History of arthroscopy of knee History of carpal tunnel surgery of left wrist History of cataract extraction (~11/2016) History of hip replacement History of lumbar surgery (~2016) Family History Family History Father Acute myocardial infarction Mother Rheumatoid arteritis Pneumonia Social History Social History Social History: . Retired. 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 Smoking status: Never smoker Additional smoking assessment comments: DENIES ANY FORM OF TOBACCO USE Alcohol intake: current Drinks per week: 28 Substance use: never Substance use type: does not use Lack of Transportation: No Lack of Food: Never True Current Housing: I Have Housing Concerned About Future Housing: No Difficulty Paying Gas/Electric Bills: No Difficulty Paying for Meds: No Currently Unemployed: No Education: Associate Degree Difficulty w/ Childcare or Family Care: No Living arrangements: with family Occupation/Education: retired Gender identity (if verbalized by the patient): Male Sexual Orientation (if Verbalized by the Patient): Straight or Heterosexual Spiritual care concerns: No Agree to blood products: Yes Anes - Eval Final PreProcedure Day of Procedure 05/09/23 15:02 Patient weight: overweight Heart: regular rate and rhythm Lungs: clear to auscultation Airway: Mallampati scale cla
[2023-05-10] VITALS (14 sets, daily range): BP systolic 117–157; BP diastolic 45–90; PULSE 62–93; RESP 10–20; TEMP 36.2–36.7; O2SAT 93–100
--- NOTE | ~2023-05-10 | XR_ITS ---
EXAMINATION: XR hip RT 1V DATE: 05/10/2023 13:57 INDICATION: Right total hip arthroplasty TECHNIQUE: AP view right hip FINDINGS: There is a right total hip arthroplasty in expected position. Subcutaneous gas with soft t issue swelling are consistent with recent surgery. IMPRESSION: 1. Recent right total hip arthroplasty. Reviewed, dictated and finalized at location L. [facility] [employer]
--- NOTE | 2023-05-10 07:53 | WPDHPUPDATE1 ---
History and Physical Update Update Date/Time: 05/10/23 07:53 History and Physical has been reviewed, including an updated exam of the patient. There are NO changes in the patient's condition. Risks, benefits, and alternatives have been discussed and questions answered. Patient agrees to proceed with procedure.
[2023-05-10] MEDS: LACTATED RINGERS 1,000 ML 30 ML IV CONT ×2 (09:45→13:40)
[2023-05-10] MEDS: ACETAMINOPHEN 500 MG TABLET 1000 MG PO (09:50)
[2023-05-10] MEDS: TRANEXAMIC ACID 1,000MG/ISO100 1,000 MG/100 ML BAG 200 MG IVPB (09:51)
[2023-05-10] MEDS: ceFAZolin 2 GM/D5W 50 ML 2 GM/50 ML BAG IVPB ×2 (11:18→20:43)
[2023-05-10] MEDS: TRANEXAMIC ACID 1,000 MG/10 ML AMPUL 1000 MG IV PUSH (13:00)
--- NOTE | 2023-05-10 13:33 | P.OP_ITS ---
Procedure Note - Detailed Date of Procedure 05/10/23 Pre-op Diagnosis right hip DJD Post-op Diagnosis Same Procedure Performed R NICHOLE Surgeon Lg Mendiola MD Anesthesia General Description of Procedure THE PATIENT WAS TAKEN TO THE OPERATING ROOM IN STABLE CONDITION AND WAS PLACED IN THE LATERAL DECUBITUS AND THE RIGHT LOWER EXTREMITY WAS PREPPED AND DRAPED IN THE STERILE FASHION. INCISION WAS MADE IN THE POSTERIOR LATERAL SIDE OF THE HIP, DOWN TO THE FASCIA LAYER. THE FASCIA WAS INCISED. THE HIP WAS EXPOSED. THE SHORT EXTERNAL ROTATORS WERE EXPOSED. THE SCIATIC NERVE WAS IDENTIFIED. INCISION WAS MADE THROUGH THE SORT EXTERNAL ROTATORS AND THE CAPSULE OF THE HIP JOINT. THE HIP WAS DISLOCATED. AN OSTEOTOMY WAS MADE TO THE FEMORAL NECK ABOUT 1 CM PROXIMAL TO THE LESSER TROCHANTER. THE ACETABULUM WAS EXPOSED. THERE WAS SEVERE DJD SEEN. BEGINNING WITH A 44 REAMER THE ACETABULUM WAS REAMED TO 53 MM. A 53 MM TRIAL WAS PLACED IN 35 DEG OF ABDUCTION AND ANTEVERSION WAS IN ALIGNMENT WITH THE TRANS ACETABULAR LIGAMENT. THE FIT WAS EXCELLENT. THE TRIAL WAS REMOVED. A 54 MM BIOMET G7 COMPONENT WAS THEN TAPPED IN TO PLACE IN 35 DEG OF ABDUCTION AND ANTEVERSION IN ALIGNMENT WITH THE TRANSVERSE ACETABULAR LIGAMENT. THE FIT WAS EXCELLENT. THE ACETABULAR LINER WAS PLACED AND CHECKED FOR STABILITY. NEXT THE FEMUR WAS PREPARED WITH INITIAL CANAL FINDER THEN SEQUENTIAL BROACHING WITH A TAPERLOC HIP SYSTEM, UNTIL A 14 BROACH FIT WELL IN 15 OF ANTEVERSION. A +3 HIGH OFFSET NECK WITH 36 MM HEAD TRIAL WAS PLACED. THE SHUCK TEST WAS EXCELLENT AND THE STABILITY IN FLEXION AND ROTATION WAS EXCELLENT. LEG LENGTHS WERE GROSSLY EQUAL. TRIALS WERE REMOVED. A BIOMET TAPERLOC 14 STEM WAS PLACED WITH A HIGH OFFSET NECK THE FIT WAS EXCELLENT IN 15 DEG OF ANTEVERSION. A +3 CERAMIC 36 MM FEMORAL HEAD WAS PLACED. THE HIP WAS TRIALED AND THE STABILITY WAS EXCELLENT WERE THE LEG LENGTHS AND THE SHUCK TEST. THE WOUND WAS IRRIGATED WITH STERILE BETADINE AND WATER FOR 3 MIN. THEN WASHED AGAIN. THE CAPSULE AND THE EXTERNAL ROTATORS WERE APPROXIMATED WITH NUMBER 2 VICRYL. THE FASCIA WITH No 2 QUIL AND THE SUB CUTANEOUS LAYER WITH 2-0 ABSORBABLE SUTURE WITH A RUNNING 3-0 SUBCUTICULAR LAYER WELL. DERMABOND WAS PLACED AND STERILE DRESSING WAS APPLIED. PATIENT WAS PLACED BACK ON TO THE S UPINE POSITION AND WAS EXTUBATED Estimated Blood Loss 200 Complications No immediate complications Condition Stable Disposition PACU
[2023-05-10] MEDS: fentaNYL CITRATE INJ (*CRX) 100 MCG/2 ML VIAL 25 MCG IV PUSH ×5 (14:04→14:53)
--- NOTE | 2023-05-10 14:14 | SUR.PHASEI ---
1413: Simple mask removed.
--- NOTE | 2023-05-10 15:07 | SUR.PHASEI ---
1455: 25mcg of Fentanyl given. RN forgot to chart before processing the transfer.
--- NOTE | 2023-05-10 15:24 | ADMGEN ---
This patient, Richie Jimenez, was admitted to Medical Room 250-01. Patient/family oriented to hospital policies and general routines including ID bracelet, bed and alarms, visiting hours, pain management, procedures, bathroom and other care routines, personal items, smoking policy, room service/diet, and visiting hours. Information on how to activate the Rapid Response Team has been discussed. Patient/Family are encouraged to report perceived risks to care and to ask questions if they do not understand what they are told or what they should do.
[2023-05-10] MEDS: DEXTROSE 5%/0.45% SOD CHL 1,000 ML 80 ML IV CONT (16:16)
[2023-05-10] MEDS: KETOROLAC 15 MG/ML VIAL (*BKC) IV PUSH (16:16)
[2023-05-10] MEDS: SENNA/DOCUSATE SODIUM TABLET 2 TAB PO (18:30)
[2023-05-10] MEDS: HYDROcodone/acetaminophen (*CRX) 7.5-325 MG TABLET 1 TAB PO (18:30)
[2023-05-10] MEDS: FAMOTIDINE 20 MG TABLET PO (20:43)
[2023-05-10] MEDS: ASPIRIN 325 MG ENTERIC TABLET PO (20:43)
[2023-05-10] MEDS: HYDROcodone/acetaminophen (*CRX) 7.5-325 MG TABLET 2 TAB PO (21:38)
[2023-05-11] MEDS: KETOROLAC 15 MG/ML VIAL (*BKC) IV PUSH ×3 (00:14→12:43)
[2023-05-11 00:49] VITALS: BP 131/57; PULSE 76; RESP 20; TEMP 36.7; O2SAT 97
[2023-05-11 04:49] VITALS: BP 142/55; PULSE 75; RESP 20; TEMP 36.3; O2SAT 96
[2023-05-11 05:21] LABS: Basophils Percent Auto 0.4 % (0.2-1.2); Immature Granulocyte Absolute 0.03 K/mm3 (0.00-0.031); Immature Granulocyte Percent A 0.3 % (0-0.5); Lymphocytes Absolute Auto 0.82 K/mm3 (0.9-3.2); Lymphocytes Percent Auto 7.4 % (18.3-44.2); Mean Corpuscular HGB Conc 33.3 g/dl (32-36); Mean Corpuscular Hemoglobin 32.1 pg (26-34); Mean Corpuscular Volume 96.4 fl (80-100); Mean Platelet Volume 9.8 fl (7.4-10.4); Monocytes Absolute Auto 1.5 K/mm3 (0.1-0.6); Monocytes Percent Auto 13.8 % (2.6-8.5); Neutrophils Absolute Auto 8.6 K/mm3 (1.3-6.7); Neutrophils Percent Auto 78.1 % (45.5-73.1); Platelet Count Result 216 k/mm3 (150-375)
[2023-05-11 05:30] LABS: Anion Gap 7 mmol/L (8-16); Blood Urea Nitrogen 15 mg/dL (9-20); Calcium 8.4 mg/dL (8.4-10.2); Carbon Dioxide 23 mmol/L (22-30); Chloride 100 mmol/L (98-107); Estimated CRCL calculation 67 ml/min; Estimated Glomerular Filt Rate > 60; Glucose 130 mg/dL (65-110); Sodium 130 mmol/L (137-145)
[2023-05-11] MEDS: ceFAZolin 2 GM/D5W 50 ML 2 GM/50 ML BAG IVPB ×2 (05:40→13:34)
[2023-05-11] MEDS: LEVOTHYROXINE SODIUM 50 MCG TABLET PO (05:40)
--- NOTE | 2023-05-11 09:01 | P.PNAN_ITS ---
Anes - Prog Note Post-Op Date/Time: 05/11/23 09:01 Cardiovascular status: normal Respiratory status: normal Airway patency: baseline Mental status: baseline Post-Op hydration status: normal Vital Signs: Last Vital Signs Temp 36.3 C L 05/11/23 04:49 Pulse 75 05/11/23 04:49 Resp 20 05/11/23 04:49 BP 142/55 H 05/11/23 04:49 Pulse Ox 96 05/11/23 04:49 O2 Del Method Room Air 05/11/23 08:04 O2 Flow Rate 10 05/10/23 14:10 Pain Score (VAS): 2 I/O: Intake & Output 05/10/23 05/11/23 05/11/23 23:59 07:59 15:59 Intake Total 290 Balance 290 Laboratory Tests 05/11/23 05:05 05/11/23 05:05 05/11/23 05:05 WBC 11.0 H RBC 2.80 L Hgb 9.0 L Hct 27.0 L MCV 96.4 MCH 32.1 MCHC 33.3 RDW 14.0 Plt Count 216 MPV 9.8 Immature Gran % (Auto) 0.3 Neut % (Auto) 78.1 H Lymph % (Auto) 7.4 L [place] % (Auto) 13.8 H Eos % (Auto) 0.0 Baso % (Auto) 0.4 Lymph # (Auto) 0.82 L [place] # (Auto) 1.5 H Eos # (Auto) 0.0 Baso # (Auto) 0.0 Abs Immat Gran (auto) 0.03 Absolute Neuts (auto) 8.6 H Absolute Nucleated RBC 0.0 Nucleated RBC % 0.0 Sodium 130 L Potassium 4.0 Chloride 100 Carbon Dioxide 23 Anion Gap 7 L BUN 15 Creatinine 0.90 Estim Creat Clear Calc 67 Estimated GFR > 60 Glucose 130 H Calcium 8.4 Post-procedural complaints: none Patient Feedback: Patient satisfied with anesthetic care.
--- NOTE | 2023-05-11 09:39 | PM.PNORT ---
Progress Note: A&P Assessment and Plan (1) Osteoarthritis of right hip: Qualifiers: Osteoarthritis type: primary Qualified Code(s): M16.11 - Unilateral primary osteoarthritis, right hip Code(s): M16.11 - Unilateral primary osteoarthritis, right hip Status: Acute Assessment and Plan: POD 1 DOING WELL OK TO DC HOME AFTER AFTERNOON PT. HE WILL F/U IN 3 WEEKS Subjective Subjective Date/Time Seen: 05/11/23 09:39 Interval history: POD 1 DOING WELL. NO CALF PAIN. GOOD PROGRESS WITH PT Exam Extrem: Other: VSS AFEBRILE DRESSING DRY NV INTACT NEG HOMANS SIGN CALF SOFT NON TENDER, THIGH SOFT NON TENDER Objective Data Vital Signs Vital Signs: Vital Signs - 24 hr 05/10/23 13:40 05/10/23 13:48 05/10/23 13:55 Temperature 36.2 C L Pulse Rate 62 79 75 Respiratory Rate 12 20 14 Blood Pressure 117/45 L 146/71 H 157/90 H Pulse Oximetry 100 100 100 Oxygen Delivery Simple Face Mask Simple Face Mask Simple Face Mask Oxygen Flow Rate 10 10 10 05/10/23 14:10 05/10/23 14:25 05/10/23 14:40 Temperature Pulse Rate 71 78 81 Respiratory Rate 10 L 16 12 Blood Pressure 150/63 H 141/64 H 152/63 H Pulse Oximetry 100 97 96 Oxygen Delivery Simple Face Mask Room Air Room Air Oxygen Flow Rate 10 05/10/23 14:55 05/10/23 15:19 05/10/23 15:34 Temperature 36.7 C 36.7 C Pulse Rate 80 81 79 Respiratory Rate 19 19 19 Blood Pressure 147/55 H 153/61 H 147/63 H Pulse Oximetry 93 94 93 Oxygen Delivery Room Air Oxygen Flow Rate 05/10/23 16:05 05/10/23 16:00 05/10/23 16:49 Temperature 36.7 C 36.7 C Pulse Rate 85 82 Respiratory Rate 18 18 Blood Pressure 141/66 H 138/68 Pulse Oximetry 94 94 Oxygen Delivery Room Air Oxygen Flow Rate 05/10/23 20:00 05/10/23 20:49 05/11/23 00:49 Temperature 36.3 C L 36.7 C Pulse Rate 82 93 76 Respiratory Rate 18 20 20 Blood Pressure 141/60 H 131/57 L Pulse Oximetry 94 96 97 Oxygen Delivery Room Air Oxygen Flow Rate 05/11/23 04:49 05/11/23 08:04 Temperature 36.3 C L Pulse Rate 75 Respiratory Rate 20 Blood Pressure 142/55 H Pulse Oximetry 96 Oxygen Delivery Room Air Oxygen Flow Rate Intake/Output Intake/Output: Intake & Output 05/08/23 05/09/23 05/10/23 05/11/23 23:59 23:59 23:59 23:59 Intake Total 1240 360 Balance 1240 360 Meds/Results Medications: Active Medications Generic Name Dose Route Start Last Admin Trade Name Freq PRN Reason Stop Dose Admin Hydrocodone Bitart/Acetaminophen 1 tab 05/10/23 15:04 05/10/23 18:30 Hydrocodone/Acetaminophen (*Crx) 7.5-325 Mg Tablet PO 1 tab Q3H PRN Administration Pain Rated 4-6 Hydrocodone Bitart/Acetaminophen 2 tab 05/10/23 15:04 05/10/23 21:38 Hydrocodone/Acetaminophen (*Crx) 7.5-325 Mg Tablet PO 2 tab Q6H PRN Administration Pain Rated 7-10 Amlodipine Besylate 10 mg 05/11/23 09:00 Amlodipine Besylate 5 Mg Tablet PO DAILY [facility] Ascorbic Acid 500 mg 05/11/23 09:00 Ascorbic Acid 500 Mg Tablet PO Q48H MAURICIO Aspirin 325 mg 05/10/23 21:00 05/10/23 20:43 Aspirin 325 Mg Enteric Tablet PO 325 mg Q12HR MAURICIO Administration Cyanocobalamin 1,000 mcg 05/11/23 09:00 Cyanocobalamin 1,000 Mcg Tablet PO DAILY MAURICIO Diazepam 5 mg 05/10/23 15:04 Diazepam (*Crx) 5 Mg Tablet PO Q6H PRN Anxiety/Muscle Spasm Famotidine 20 mg 05/10/23 21:00 05/10/23 20:43 Famotidine 20 Mg Tablet PO 20 mg Q12HR MAURICIO Administration Hydroxyzine HCl 50 mg 05/10/23 15:04 Hydroxyzine Hcl 25 Mg Tablet PO Q4H PRN Itching Cefazolin Sodium 2 gm in 50 mls @ 100 mls/hr 05/10/23 20:00 05/11/23 05:40 Ancef 2 Gm/D5w 50 Ml IVPB 05/11/23 12:29 100 mls/hr Q8H MAURICIO Administration Ketorolac Tromethamine 15 mg 05/11/23 00:00 05/11/23 05:40 Ketorolac 15 Mg/Ml Vial (*Bkc) IV PUSH 05/11/23 18:01 15 mg Q6HR MAURICIO Administration Levothyroxine Sodium 50 mcg 05/11/23 06:3
--- NOTE | 2023-05-11 09:43 | PM.DS ---
DS: Admitting Diagnosis Discharge Date 05/11/23 Admitting Diagnosis RIGHT HIP DJD DS: Discharge Diagnosis Discharge Diagnosis (1) Osteoarthritis of right hip: Qualifiers: Osteoarthritis type: primary Qualified Code(s): M16.11 - Unilateral primary osteoarthritis, right hip Code(s): M16.11 - Unilateral primary osteoarthritis, right hip Status: Acute DS: Summary Hospital Course Reason for hospitalization: R NICHOLE Hospital Course: PATIENT WAS ADMITTED S/P TOTAL HIP ARTHROPLASTY FOR POSTOPERATIVE MEDICAL MANAGEMENT, PAIN CONTROL AND MOBILIZATION WITH PHYSICAL AND OCCUPATIONAL THERAPY. THE PATIENT PROGRESSED WELL WITH PT/OT. LABS AND VITALS REMAINED STABLE AND PAIN WELL CONTROLLED. THE PATIENT HAS BEEN CLEARED TO BE DISCHARGED HOME. FOLLOW UP APPOINTMENT SCHEDULED. DISCHARGE INSTRUCTIONS DISCUSSED AT LENGTH WITH THE PATIENT. MEDICATIONS REVIEWED. Status at Discharge Cognitive/behavioral status at discharge: STABLE Time Spent with Patient Time attestation: Total time spent providing and/or coordinating discharge services: DS: Data Data Completed and Pending Labs on day of discharge: Labs from last 24 hours 05/11/23 05:05 WBC 11.0 H RBC 2.80 L Hgb 9.0 L Hct 27.0 L MCV 96.4 MCH 32.1 MCHC 33.3 RDW 14.0 Plt Count 216 MPV 9.8 Immature Gran % (Auto) 0.3 Neut % (Auto) 78.1 H Lymph % (Auto) 7.4 L [place] % (Auto) 13.8 H Eos % (Auto) 0.0 Baso % (Auto) 0.4 Lymph # (Auto) 0.82 L [place] # (Auto) 1.5 H Eos # (Auto) 0.0 Baso # (Auto) 0.0 Abs Immat Gran (auto) 0.03 Absolute Neuts (auto) 8.6 H Absolute Nucleated RBC 0.0 Nucleated RBC % 0.0 Sodium 130 L Potassium 4.0 Chloride 100 Carbon Dioxide 23 Anion Gap 7 L BUN 15 Creatinine 0.90 Estim Creat Clear Calc 67 Estimated GFR > 60 Glucose 130 H Calcium 8.4 Procedures/Treatments: R NICHOLE Discharge Plan Discharge Patient Disposition: Home, Self-Care Discharge Instructions: LG MENDIOLA M.D. [facility] [address] [place] [address] POST OPERATIVE DISCHARGE INSTRUCTIONS FOLLOWING TOTAL HIP REPLACEMENT SURGERY ? Your dressing will be changed prior to your discharge. You will be sent home with one additional dressing to be changed on post op day 7 by the home health RN. You may remove the dressing on post op day 14. Your incision was closed with dermabond, allow the dermabond to fall off naturally once your dressing is removed. Do not pull at the dermabond or disrupt incision healing. ? You may shower with your dressing but do not submerge in a bath tub. ? Do not drive or operate machinery until you are released by Dr. Mendiola. ? Do not walk without a walker for any reason until you are released by Dr. Mendiola. ? Continue to apply ice to the hip intermittently for additional pain relief. Protect your skin with a towel or pillow case. ? Unless otherwise instructed by Dr. Mendiola you me be weight bearing as tolerated with your walker. ? Continue to follow strict total hip replacement precautions. ? Your first post op appointment was sent to you via mail preoperatively. If you have any questions or are unable to make your appointment, please contact our office for scheduling questions. ? Your medications have been sent to your pharmacy. You have been sent home with pain medication. We have also sent you with a stool softener as narcotics can cause constipation. Please keep this in mind during your postoperative recovery. If you are not experiencing regular bowel movements, please contact our office for further instruction. ? Please contact our office with any questions regarding your hip at [phone]. Stand Alone Forms: General Discharge Instructions Follow-up/Referrals: Lg Mendiola MD [Physician] - 3 Weeks Discharge Medications: New aspirin 325 mg Tablet,Delayed Release (Dr/Ec) 325 mg PO Q
[2023-05-11 09:51] VITALS: BP 116/50; PULSE 87; RESP 14; TEMP 36.2; O2SAT 100
[2023-05-11] MEDS: CYANOCOBALAMIN 1,000 MCG TABLET 1000 MCG PO (10:48)
[2023-05-11] MEDS: HYDROcodone/acetaminophen (*CRX) 7.5-325 MG TABLET 2 TAB PO (10:48)
[2023-05-11] MEDS: ASCORBIC ACID 500 MG TABLET PO (10:48)
[2023-05-11] MEDS: lisinopriL 20 MG TABLET 40 MG PO (10:49)
[2023-05-11] MEDS: amLODIPine BESYLATE 5 MG TABLET 10 MG PO (10:49)
[2023-05-11] MEDS: SENNA/DOCUSATE SODIUM TABLET 2 TAB PO (10:49)
[2023-05-11] MEDS: CHOLECALCIFEROL 1,000 UNITS TABLET 4000 UNITS PO (10:50)
[2023-05-11] MEDS: ASPIRIN 325 MG ENTERIC TABLET PO (10:50)
[2023-05-11] MEDS: FAMOTIDINE 20 MG TABLET PO (10:50)
[2023-05-11] MEDS: polyethylene glycoL 3350 17 GM POWD.PACK PO (10:51)
[2023-05-11 14:42] VITALS: BP 144/60; PULSE 78; RESP 16; TEMP 36.4; O2SAT 98
== END 2023-05-11 16:30 | disposition home health service (06) ==
LOC: ANHSURGERY 08:52 → ANH2MED 15:07
PROVIDERS: PCP Hospitalist; Visit Provider Orthopaedic Surgery
PROC: (CPT 27130; principal; 2023-05-10 11:00)
DX: M16.11 Unilateral primary osteoarthritis, right hip (principal); E78.2 Mixed hyperlipidemia; I10 Essential (primary) hypertension; E03.9 Hypothyroidism, unspecified; E55.9 Vitamin D deficiency, unspecified; R01.1 Cardiac murmur, unspecified; I35.0 Nonrheumatic aortic (valve) stenosis; D64.89 Other specified anemias; N52.9 Male erectile dysfunction, unspecified; E87.1 Hypo-osmolality and hyponatremia; Z98.890 Other specified postprocedural states; Z96.642 Presence of left artificial hip joint; Z86.79 Personal history of other diseases of the circulatory system; Z82.49 Family history of ischemic heart disease and other diseases of the circulatory system
CPT/HCPCS: 27130; 36415; 73501; 80048; 80307; 81001; 82040; 83036; 85025; 85610; 85730; 86850; 86900; 86901; 87081; 93005; 97110; 97161; 97165; 97530; 97535; A9270; C1776; J0171; J0690; J1100; J1170; J1885; J2270; J2405; J2704; J2795; J3010; J7120

== ENCOUNTER 2024-05-29 01:31 | Day surgery (SDC) | payer MEDICARE, SELFPAY ==
[2024-04-24 15:09] VITALS: BMI 25.8
[2024-05-17 14:52] VITALS: BMI 25.8
[2024-05-29 08:54] VITALS: BP 149/73; PULSE 76; RESP 18; TEMP 36.1; O2SAT 100
--- NOTE | 2024-05-29 08:58 | WPDANESEPPF ---
Anes - Initial Pre Proc Eval Procedure: Operation Date: 05/29/24 10:00 Proposed Procedures p Colonoscopy - Isai Jason MD Date/Time: 05/29/24 08:58 Surgeon: Isai Jason MD Pre Op Diagnosis: hx of colon polyps Patient Data Age: 73 Gender: M Height: 1.78 m Weight: 81.1 kg Last Vital Signs Temp 36.1 C L 05/29/24 08:54 Pulse 76 05/29/24 08:54 Resp 18 05/29/24 08:54 BP 149/73 H 05/29/24 08:54 Pulse Ox 100 05/29/24 08:54 O2 Del Method Room Air 05/29/24 08:54 Allergies Allergy/AdvReac Type Severity Reaction Status Date / Time pneumococcal vaccine Allergy Severe Itching Verified 05/29/24 08:52 Home Medications ?Medication ?Instructions ?Recorded ?Confirmed ?Type cyanocobalamin (vitamin B-12) 1,000 mcg PO DAILY #90 tabs 08/23/19 05/29/24 Rx 1,000 mcg tablet (Vitamin B-12) multivitamin 1 cap PO DAILY #90 caps 08/23/19 05/29/24 Rx amlodipine 10 mg tablet 10 mg PO DAILY #90 tabs 12/25/21 05/29/24 Rx levothyroxine 50 mcg tablet 50 mcg PO DAILY #30 tabs 08/30/22 05/29/24 Rx ascorbate calcium (vitamin C) 500 500 mg PO DAILY 01/05/23 05/29/24 History mg tablet lisinopril 40 mg tablet 40 mg PO DAILY 01/05/23 05/29/24 History cholecalciferol (vitamin D3) 50 50 mcg PO DAILY 04/27/23 05/29/24 History mcg (2,000 unit) tablet Patient hx anesthesia problems: none Family hx anesthesia problems: none Results Review: All pre-operative results and documents have been reviewed as part of the pre-operative evaluation. [facility] Past Medical History Medical History Hyponatremia Aortic valve stenosis, moderate Cardiac murmur Dyslipidemia Chronic anemia Carpal tunnel syndrome Hypothyroid Abnormal colonoscopy (~08/2012) polyp - Dr Eugene Erectile dysfunction Vitamin D deficiency Essential (primary) hypertension Surgical History Surgical History H/O elbow surgery History of carpal tunnel surgery of left wrist History of arthroscopy of knee History of hip replacement History of cataract extraction (~11/2016) History of lumbar surgery (~2016) Family History Family History Father Acute myocardial infarction Mother Rheumatoid arteritis Pneumonia Social History Social History Social History: . Retired. 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 Smoking status: Former smoker Additional smoking assessment comments: DENIES ANY FORM OF TOBACCO USE Alcohol intake: never Drinks per week: 28 Alcohol use details: GLASSES WINE Substance use: never Substance use type: does not use Lack of Transportation: No Lack of Food: Never True Current Housing: I Have Housing Concerned About Future Housing: No Difficulty Paying Gas/Electric Bills: No Difficulty Paying for Meds: No Currently Unemployed: No Education: Bachelor's Degree Difficulty w/ Childcare or Family Care: No Living arrangements: with family Occupation/Education: retired Gender identity (if verbalized by the patient): Male Sexual Orientation (if Verbalized by the Patient): Straight or Heterosexual Spiritual care concerns: No Agree to blood products: Yes Anes - Eval Final PreProcedure Day of Procedure 05/29/24 08:58 Patient weight: normal Heart: regular rate and rhythm Lungs: clear to auscultation Airway: Mallampati scale class II Neurological: alert and oriented Last oral intake: >/= 8 hours ASA classification: III Emergent: no Anesthetic plan: proceed Anesthesia type and monitoring: general GIVS and standard monitoring Results Review: All pre-operative results and documents have been reviewed as part of the pre-operative evaluation. Informed Consent: The patient's anesthetic plan and its attendant risks and benefits were discussed with the patient/family/POA. Questions were solicited and answers provided to the satisfaction of the patient/family/POA.
[2024-05-29] MEDS: LACTATED RINGERS 1,000 ML 150 ML IV CONT (09:09)
--- NOTE | 2024-05-29 09:31 | PM.IMHP ---
H&P: HPI History of Present Illness Date/Time: 05/29/24 09:31 Chief Complaint: History of colon polyps Narrative: The patient has a history of colonic polyps, the last colonoscopy was 5 years ago. Review of Systems Review of Systems: All systems reviewed & are unremarkable except as noted in HPI and below PMFSH Past Medical History Medical History Hyponatremia Aortic valve stenosis, moderate Cardiac murmur Dyslipidemia Chronic anemia Carpal tunnel syndrome Hypothyroid Abnormal colonoscopy (~08/2012) polyp - Dr Eugene Erectile dysfunction Vitamin D deficiency Essential (primary) hypertension Surgical History Surgical History H/O elbow surgery History of carpal tunnel surgery of left wrist History of arthroscopy of knee History of hip replacement History of cataract extraction (~11/2016) History of lumbar surgery (~2016) Family History Family History Father Acute myocardial infarction Mother Rheumatoid arteritis Pneumonia Social History Social History Social History: . Retired. 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 Smoking status: Former smoker Additional smoking assessment comments: DENIES ANY FORM OF TOBACCO USE Alcohol intake: never Drinks per week: 28 Alcohol use details: GLASSES WINE Substance use: never Substance use type: does not use Lack of Transportation: No Lack of Food: Never True Current Housing: I Have Housing Concerned About Future Housing: No Difficulty Paying Gas/Electric Bills: No Difficulty Paying for Meds: No Currently Unemployed: No Education: Bachelor's Degree Difficulty w/ Childcare or Family Care: No Living arrangements: with family Occupation/Education: retired Gender identity (if verbalized by the patient): Male Sexual Orientation (if Verbalized by the Patient): Straight or Heterosexual Spiritual care concerns: No Agree to blood products: Yes Meds Home Medications and Allergies Home Medications ?Medication ?Instructions ?Recorded ?Confirmed ?Type cyanocobalamin (vitamin B-12) 1,000 mcg PO DAILY #90 tabs 08/23/19 05/29/24 Rx 1,000 mcg tablet (Vitamin B-12) multivitamin 1 cap PO DAILY #90 caps 08/23/19 05/29/24 Rx amlodipine 10 mg tablet 10 mg PO DAILY #90 tabs 12/25/21 05/29/24 Rx levothyroxine 50 mcg tablet 50 mcg PO DAILY #30 tabs 08/30/22 05/29/24 Rx ascorbate calcium (vitamin C) 500 500 mg PO DAILY 01/05/23 05/29/24 History mg tablet lisinopril 40 mg tablet 40 mg PO DAILY 01/05/23 05/29/24 History cholecalciferol (vitamin D3) 50 50 mcg PO DAILY 04/27/23 05/29/24 History mcg (2,000 unit) tablet Allergies Allergy/AdvReac Type Severity Reaction Status Date / Time pneumococcal vaccine Allergy Severe Itching Verified 05/29/24 08:52 Vital Signs Vital Signs - 24 hr 05/29/24 08:54 Temperature 97 F L Pulse Rate 76 Respiratory Rate 18 Blood Pressure 149/73 H Pulse Oximetry 100 Oxygen Delivery Room Air Exam Const: General: cooperative and healthy appearing Resp: Effort & Inspection: normal respiratory effort and able to speak in complete sentences Auscultation: clear to auscultation bilaterally Cardio: Rate: regular rate Rhythm: regular rhythm GI: Inspection: normal to inspection GI Palp: No No hepatosplenomegaly present Auscultation: normal bowel sounds Rectal Exam: deferred Skin: General skin exam: normal color Psych: Appearance: grossly normal Mental Status: mental status grossly normal Assessment and Plan Assessment and plan (1) History of colon polyps: Code(s): Z86.010 - Personal history of colon polyps Status: Acute Assessment and Plan: The patient is deemed a good candidate for the procedure. Consent signed. Will proceed.
[2024-05-29 10:44] VITALS: BP 132/75; PULSE 72; RESP 17; O2SAT 100
[2024-05-29 10:54] VITALS: BP 152/79; PULSE 66; RESP 20; O2SAT 100
[2024-05-29 11:04] VITALS: BP 159/80; PULSE 67; RESP 18; O2SAT 100
== END 2024-05-29 11:19 | disposition home or self-care (01) ==
PROVIDERS: PCP Hospitalist; Visit Provider Internal Medicine Gastroenterology
PROC: 0DJD8ZZ Inspection of Lower Intestinal Tract, Via Natural or Artificial Opening Endoscopic (ICD-10-PCS; CPT 45378; principal; 2024-05-29 10:00)
DX: Z12.11 Encounter for screening for malignant neoplasm of colon (principal); D12.0 Benign neoplasm of cecum; D12.2 Benign neoplasm of ascending colon; D12.3 Benign neoplasm of transverse colon; D12.5 Benign neoplasm of sigmoid colon; E78.5 Hyperlipidemia, unspecified; D64.9 Anemia, unspecified; E03.9 Hypothyroidism, unspecified; E55.9 Vitamin D deficiency, unspecified; I10 Essential (primary) hypertension; E87.1 Hypo-osmolality and hyponatremia; I35.0 Nonrheumatic aortic (valve) stenosis; R01.1 Cardiac murmur, unspecified; G56.00 Carpal tunnel syndrome, unspecified upper limb; N52.9 Male erectile dysfunction, unspecified; Z98.890 Other specified postprocedural states; Z98.1 Arthrodesis status; Z87.891 Personal history of nicotine dependence; Z82.49 Family history of ischemic heart disease and other diseases of the circulatory system
CPT/HCPCS: 45390; 45381; 88305; J2003; J2371; J2704; J7120

== ENCOUNTER 2025-05-30 02:06 | Day surgery (SDC) | payer MEDICARE, SELFPAY ==
[2025-05-13 14:43] VITALS: BMI 26.2
[2025-05-30 06:28] VITALS: BP 166/73; PULSE 72; RESP 18; TEMP 36.4; O2SAT 100
[2025-05-30] MEDS: LACTATED RINGERS 1,000 ML 150 ML IV CONT (06:40)
--- NOTE | 2025-05-30 07:04 | WPDANESEPPF ---
Anes - Initial Pre Proc Eval Procedure: Operation Date: 05/30/25 07:30 Proposed Procedures p Screening Colonoscopy - Isai Jason MD Date/Time: 05/30/25 07:04 Surgeon: Isai Jason MD Pre Op Diagnosis: Personal history of colon polyps, unspecified Patient Data Age: 74 Gender: M Height: 1.78 m Weight: 84.5 kg Last Vital Signs Temp 97.6 F 05/30/25 06:28 Pulse 72 05/30/25 06:28 Resp 18 05/30/25 06:28 BP 166/73 H 05/30/25 06:28 Pulse Ox 100 05/30/25 06:28 O2 Del Method Room Air 05/30/25 06:28 Allergies Allergy/AdvReac Type Severity Reaction Status Date / Time pneumococcal vaccine Allergy Severe Itching Verified 05/30/25 06:24 Home Medications ?Medication ?Instructions ?Recorded ?Confirmed ?Type cyanocobalamin (vitamin B-12) 1,000 mcg PO DAILY #90 tabs 08/23/19 05/30/25 Rx 1,000 mcg tablet (Vitamin B-12) multivitamin 1 cap PO DAILY #90 caps 08/23/19 05/30/25 Rx levothyroxine 50 mcg tablet 50 mcg PO DAILY #30 tabs 08/30/22 05/30/25 Rx ascorbate calcium (vitamin C) 500 500 mg PO DAILY 01/05/23 05/30/25 History mg tablet lisinopril 40 mg tablet 40 mg PO DAILY 01/05/23 05/30/25 History cholecalciferol (vitamin D3) 50 50 mcg PO DAILY 04/27/23 05/30/25 History mcg (2,000 unit) tablet famotidine 10 mg tablet (Acid 10 mg PO DAILY 05/13/25 05/30/25 History Controller) hydrochlorothiazide 25 mg tablet 25 mg PO Q12H 05/13/25 05/30/25 History ipratropium bromide 21 mcg (0.03 2 spray intranasal DAILY 05/13/25 05/30/25 History %) nasal spray Patient hx anesthesia problems: none Family hx anesthesia problems: none Results Review: All pre-operative results and documents have been reviewed as part of the pre-operative evaluation. [facility] Past Medical History Medical History Hyponatremia Aortic valve stenosis, moderate Cardiac murmur Dyslipidemia Chronic anemia Carpal tunnel syndrome Hypothyroid Abnormal colonoscopy (~08/2012) polyp - Dr Eugene Erectile dysfunction Vitamin D deficiency Essential (primary) hypertension Surgical History Surgical History H/O elbow surgery History of carpal tunnel surgery of left wrist History of arthroscopy of knee History of hip replacement History of cataract extraction (~11/2016) History of lumbar surgery (~2016) Family History Family History Father Acute myocardial infarction Mother Rheumatoid arteritis Pneumonia Social History Social History Social History: . Retired. 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 Smoking status: Never smoker Additional smoking assessment comments: DENIES ANY FORM OF TOBACCO USE Alcohol intake: current Drinks per week: 15 Alcohol use details: GLASSES WINE Substance use: never Substance use type: does not use Lack of Transportation: No Lack of Food: Never True Current Housing: I Have Housing Concerned About Future Housing: No Difficulty Paying Gas/Electric Bills: No Difficulty Paying for Meds: No Currently Unemployed: No Education: Bachelor's Degree Difficulty w/ Childcare or Family Care: No Living arrangements: with family Occupation/Education: retired Gender identity (if verbalized by the patient): Male Sexual Orientation (if Verbalized by the Patient): Straight or Heterosexual Spiritual care concerns: No Agree to blood products: Yes Anes - Eval Final PreProcedure Day of Procedure 05/30/25 07:04 Patient weight: overweight Heart: regular rate and rhythm and murmur (3/6 at R sternal border. ) Lungs: normal air movement Airway: Mallampati scale Neurological: alert and oriented Last oral intake: >/= 8 hours ASA classification: III Emergent: no Anesthetic plan: proceed Anesthesia type and monitoring: general GIVS and standard monitoring Results Review: All pre-operative results and documents have been reviewed as part of the pre-operative evaluation. HTN, hypothyroidism, mild by ECHO 2021. Pt without cp, sob or episodes of passing out, walking short distances. States his cardio and monitoring w yearly echos. Informed Consent: The patient's anesthetic plan and its attendant risks and benefits were discussed with the patient/family/POA. Questions were solicited and answers provided to the satisfaction of the patient/family/POA.
--- NOTE | 2025-05-30 07:09 | PM.IMHP2 ---
H&P: HPI History of Present Illness Date/Time: 05/30/25 07:09 Chief Complaint: History of colon polyps Narrative: The patient has a history of colonic polyps, the last colonoscopy was 1 year ago, having several large tubular adenomas. Some of them were removed with EMR. Review of Systems Review of Systems: All systems reviewed & are unremarkable except as noted in HPI and below PMFSH Past Medical History Medical History Hyponatremia Aortic valve stenosis, moderate Cardiac murmur Dyslipidemia Chronic anemia Carpal tunnel syndrome Hypothyroid Abnormal colonoscopy (~08/2012) polyp - Dr Eugene Erectile dysfunction Vitamin D deficiency Essential (primary) hypertension Surgical History Surgical History H/O elbow surgery History of carpal tunnel surgery of left wrist History of arthroscopy of knee History of hip replacement History of cataract extraction (~11/2016) History of lumbar surgery (~2016) Family History Family History Father Acute myocardial infarction Mother Rheumatoid arteritis Pneumonia Social History Social History Social History: . Retired. 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 Smoking status: Never smoker Additional smoking assessment comments: DENIES ANY FORM OF TOBACCO USE Alcohol intake: current Drinks per week: 15 Alcohol use details: GLASSES WINE Substance use: never Substance use type: does not use Lack of Transportation: No Lack of Food: Never True Current Housing: I Have Housing Concerned About Future Housing: No Difficulty Paying Gas/Electric Bills: No Difficulty Paying for Meds: No Currently Unemployed: No Education: Bachelor's Degree Difficulty w/ Childcare or Family Care: No Living arrangements: with family Occupation/Education: retired Gender identity (if verbalized by the patient): Male Sexual Orientation (if Verbalized by the Patient): Straight or Heterosexual Spiritual care concerns: No Agree to blood products: Yes Meds Home Medications and Allergies Home Medications ?Medication ?Instructions ?Recorded ?Confirmed ?Type cyanocobalamin (vitamin B-12) 1,000 mcg PO DAILY #90 tabs 08/23/19 05/30/25 Rx 1,000 mcg tablet (Vitamin B-12) multivitamin 1 cap PO DAILY #90 caps 08/23/19 05/30/25 Rx levothyroxine 50 mcg tablet 50 mcg PO DAILY #30 tabs 08/30/22 05/30/25 Rx ascorbate calcium (vitamin C) 500 500 mg PO DAILY 01/05/23 05/30/25 History mg tablet lisinopril 40 mg tablet 40 mg PO DAILY 01/05/23 05/30/25 History cholecalciferol (vitamin D3) 50 50 mcg PO DAILY 04/27/23 05/30/25 History mcg (2,000 unit) tablet famotidine 10 mg tablet (Acid 10 mg PO DAILY 05/13/25 05/30/25 History Controller) hydrochlorothiazide 25 mg tablet 25 mg PO Q12H 05/13/25 05/30/25 History ipratropium bromide 21 mcg (0.03 2 spray intranasal DAILY 05/13/25 05/30/25 History %) nasal spray Allergies Allergy/AdvReac Type Severity Reaction Status Date / Time pneumococcal vaccine Allergy Severe Itching Verified 05/30/25 06:24 Vital Signs Vital Signs - 24 hr 05/30/25 06:28 Temperature 97.6 F Pulse Rate 72 Respiratory Rate 18 Blood Pressure 166/73 H Pulse Oximetry 100 Oxygen Delivery Room Air Exam Const: General: cooperative and healthy appearing Resp: Effort & Inspection: normal respiratory effort and able to speak in complete sentences Auscultation: clear to auscultation bilaterally Cardio: Rate: regular rate Rhythm: regular rhythm GI: Inspection: normal to inspection GI Palp: No No hepatosplenomegaly present Auscultation: normal bowel sounds Rectal Exam: deferred Skin: General skin exam: normal color Psych: Appearance: grossly normal Mental Status: mental status grossly normal Assessment and Plan Assessment and plan (1) History of colon polyps: Code(s): Z86.010 - Personal history of colon polyps Status: Acute Assessment and Plan: The patient is deemed a good candidate for the procedure. Consent signed. Will proceed. Prior Studies I have reviewed the following patient records and this information was taken into consideration when formulating the assessment and plan.: previous labs, previous ER visits, previous hospitalizations and previous clinic visits
[2025-05-30 07:45] VITALS: BP 139/70; PULSE 61; RESP 14; O2SAT 99
[2025-05-30 07:55] VITALS: BP 156/78; PULSE 60; RESP 15; O2SAT 100
[2025-05-30 08:05] VITALS: BP 173/83; PULSE 65; RESP 16; O2SAT 100
== END 2025-05-30 08:14 | disposition home or self-care (01) ==
PROVIDERS: PCP Hospitalist; Referring Provider Internal Medicine Gastroenterology; Visit Provider Internal Medicine Gastroenterology
PROC: 0DJD8ZZ Inspection of Lower Intestinal Tract, Via Natural or Artificial Opening Endoscopic (ICD-10-PCS; CPT 45378; principal; 2025-05-30 07:30)
DX: Z09 Encounter for follow-up examination after completed treatment for conditions other than malignant neoplasm (principal); E78.5 Hyperlipidemia, unspecified; I10 Essential (primary) hypertension; D64.9 Anemia, unspecified; E03.9 Hypothyroidism, unspecified; N52.9 Male erectile dysfunction, unspecified; E55.9 Vitamin D deficiency, unspecified; E87.1 Hypo-osmolality and hyponatremia; I35.0 Nonrheumatic aortic (valve) stenosis; R01.1 Cardiac murmur, unspecified; Z98.890 Other specified postprocedural states; Z98.1 Arthrodesis status; Z86.0100 Personal history of colon polyps, unspecified; Z82.49 Family history of ischemic heart disease and other diseases of the circulatory system
CPT/HCPCS: 45378; J2704; J7120